=== PATIENT | female | born 1935 | race Caucasian/White ===

== ENCOUNTER 2018-01-21 21:57 | Inpatient (IN) | payer MEDICARE, MEDICAID ==
[~2018-01-21] VITALS: Ht 165.1 cm; Wt 98.6 kg
[2018-01-21] MEDS ORDERED: ONDANSETRON 4 MG/2 ML (SDV) Z0FRAN IVP PRN (22:15)
[2018-01-21] MEDS ORDERED: VITAMIN K 1 MG/ML ORAL SOLN 1 ML SYRINGE PO ONE (22:15)
[2018-01-21] MEDS ORDERED: ALPRAZolam 0.25 MG (XANAX) TAB PO PRN (22:15)
[2018-01-21] MEDS ORDERED: CALCIUM CARBONATE 500 MG (TUMS) TAB.CHEW PO PRN (22:15)
[2018-01-21] MEDS ORDERED: ACETAMINOPHEN 500 MG TAB (TYLENOL) PO PRN (22:15)
[2018-01-21 23:40] VITALS: BP 105/74
[2018-01-21 23:45] VITALS: BP 100/39
[2018-01-21] MEDS: NS IV 1000 ML 1,000 ML IV SCH (23:50)
[2018-01-22] VITALS (17 sets, daily range): BP systolic 82–110; BP diastolic 49–84
[2018-01-22] MEDS ORDERED: RT-ALBUTEROL SULF 2.5 MG/3 ML PRE-MIX VIAL INH PRN (01:00)
[2018-01-22] MEDS ORDERED: DIVA250T12 PO (02:53)
[2018-01-22] MEDS ORDERED: TRIM100T PO (02:53)
[2018-01-22] MEDS ORDERED: POTA10CA43 PO (02:53)
[2018-01-22] MEDS ORDERED: MV-M1TAB2 PO (02:53)
[2018-01-22] MEDS ORDERED: PARO10TA81 PO (02:53)
[2018-01-22] MEDS ORDERED: ASCO500C17 PO (02:53)
[2018-01-22] MEDS ORDERED: PRAV40TA2 PO (02:53)
[2018-01-22] MEDS ORDERED: DILT180C PO (02:53)
[2018-01-22] MEDS ORDERED: CRAN300T PO (02:53)
[2018-01-22] MEDS ORDERED: ACET-2267 PO (02:56)
[2018-01-22] MEDS ORDERED: MEMA10TA2 PO (02:56)
[2018-01-22] MEDS ORDERED: FERR325T18 PO (02:56)
[2018-01-22 04:31] LABS: BASOPHILS % (AUTO) 0 % (0-10); EOSINOPHILS % (AUTO) 0 % (0-10); HEMATOCRIT 38 % (35-52); HEMOGLOBIN 12.3 G/DL (11.5-16.0); LYMPHOCYTES # (AUTO) 0.8 X 10^3 (1.0-4.0); LYMPHOCYTES % (AUTO) 5 % (12-44); MEAN CORPUSCULAR HEMOGLOBIN 31 PG (25-34); MEAN CORPUSCULAR HGB CONC 33 G/DL (32-36); MEAN CORPUSCULAR VOLUME 94 FL (80-99); MEAN PLATELET VOLUME 11.5 FL (7.4-10.4); MONOCYTES # (AUTO) 0.7 X 10^3 (0.0-1.0); MONOCYTES % (AUTO) 4 % (0-12); NEUTROPHILS % (AUTO) 91 % (42-75); PLATELET COUNT 218 10^3/uL (130-400); RED BLOOD COUNT 3.99 10^6/uL (4.35-5.85); RED CELL DISTRIBUTION WIDTH 14.4 % (10.0-14.5); WHITE BLOOD COUNT 16.6 10^3/uL (4.3-11.0)
[2018-01-22 04:41] LABS: INR 3.5 (0.8-1.4)
[2018-01-22] MEDS ORDERED: NS IV 1000 ML 1,000 ML IV SCH ×2 (07:00→14:30)
--- NOTE | 2018-01-22 07:15 | Pulmonary Consultation ---
History of Present Illness History of Present Illness Date of Consultation 01/22/18 07:11 Time Seen by Provider: 09:02 Date of Admission History of Present Illness 82yo with hx of dementia, PE, anemia presented to ED [facility]p fall at [facility]. Pt is confused. Unable to obtain ROS. CT in ED is negative however found to have a fractured Distal femur. Ortho is consulted. I am consulted for ICU management. Allergies and Home Medications Allergies Coded Allergies: No Allergy Information Available (Unverified , 01/21/18) Home Medications Acetaminophen 500 Mg Tablet, 500 MG PO TID, (Reported) Acetaminophen 325 Mg Tablet, 650 MG PO Q8H PRN for PAIN-MILD, (Reported) Ascorbic Acid 500 Mg Tablet, 500 MG PO DAILY, (Reported) Cranberry Extract 300 Mg Tablet, 300 MG PO BID, (Reported) Diltiazem HCl 180 Mg Cap.er.24h, 180 MG PO DAILY, (Reported) Divalproex Sodium 500 Mg Tab.er.24h, 500 MG PO DAILY, (Reported) Ferrous Sulfate 325 Mg Tablet, 325 MG PO BID, (Reported) Guaifenesin 600 Mg Tab.er.12h, 600 MG PO Q12H PRN for CONGESTION, (Reported) Hydrocodone Bit/Acetaminophen 1 Tab Tab, 1 TAB PO Q4H PRN for MOD Prescribed by: FERMIN YING on 01/27/18 1057 Magnesium Hydroxide 400 Mg/5 Ml Oral.susp, 30 ML PO DAILY PRN for CONSTIPATION- 7TH LINE, (Reported) Memantine HCl 10 Mg Tablet, 10 MG PO BID, (Reported) Multivits,Th W-Fe,Other Min 1 Each Tablet, 1 TAB PO DAILY, (Reported) Nystatin 60 Gm Powder, TP Q12H PRN for RASH, (Reported) Paroxetine HCl 10 Mg Tablet, 10 MG PO DAILY, (Reported) Potassium Chloride 10 Meq Tab.er.prt, 10 MEQ PO DAILY, (Reported) Pravastatin Sodium 40 Mg Tablet, 40 MG PO HS, (Reported) Simethicone 125 Mg Tab.chew, 125 MG PO QID PRN for GAS, (Reported) Tramadol HCl 50 Mg Tablet, 50 MG PO Q4H PRN for PAIN-MODERATE, (Reported) Trimethoprim 100 Mg Tablet, 100 MG PO HS, (Reported) Warfarin Sodium 3 Mg Tablet, 3 MG PO 1700, (Reported) Past Yddoyhk-Gxmcdv-Likgns Hx Patient Social History Alcohol Use: Denies Use Recreational Drug Use: No Smoking Status: Never a Smoker Recent Foreign Travel: No Contact w/Someone Who Travel: No Recent Infectious Disease Expo: No Recent Hopitalizations: No Seasonal Allergies Seasonal Allergies: No Past Medical History Surgeries: Yes Respiratory: No Currently Using CPAP: No Cardiac: Yes (VC filter) Neurological: Yes Genitourinary: No Gastrointestinal: Yes Gastroesophageal Reflux, Diverticulosis, Hiatal Hernia Musculoskeletal: No Endocrine: No HEENT: No Cancer: No Psychosocial: Yes Depression Integumentary: No Blood Disorders: Yes (anemia) Adverse Reaction/Blood Tranf: No Review of Systems Time Seen by Provider: 09:04 Sepsis Event Evaluation Height, Weight, BMI Height: 5'5.00" Weight: 194lbs. 3.0oz. 88.983974kp; 32.0 BMI Method: Exam Exam Vital Signs Date Time Temp Pulse Resp B/P (MAP) Pulse Ox O2 Delivery O2 Flow Rate FiO2 01/22/18 06:00 110 15 98 Room Air 01/22/18 05:00 108 18 96/76 (83) 97 Room Air 01/22/18 04:00 98.1 107 18 96/76 (83) 97 Room Air 01/22/18 03:00 101 15 99/54 (69) 98 Room Air 01/22/18 02:00 97 15 101/49 (66) 97 Room Air 01/22/18 01:30 96 15 107/60 (76) 97 Room Air 01/22/18 01:15 94 15 107/55 (72) 100 Room Air 01/22/18 01:02 97 Nasal Cannula 2.00 01/22/18 01:00 96 14 101/67 (78) 100 Room Air 01/22/18 01:00 96 01/22/18 00:45 95 14 108/64 (79) 95 Room Air 01/22/18 00:30 97 15 89/70 (76) 84 Room Air 01/22/18 00:15 96 14 82/65 (71) 95 Room Air 01/22/18 00:03 98 95 01/22/18 00:00 101 15 104/76 (85) 99 Nasal Cannula 2.00 01/21/18 23:45 101 14 100/39 (59) 98 Nasal Cannula 2.00 01/21/18 23:40 98.2 99 14 105/74 (84) 97 Nasal Cannula 2.00 01/21/18 23:37 100 01/21/18 23:25 Nasal Cannula 2.00 I & O 01/22/18 07:00 Intake Total 0 ml Output Total 175 ml Balance -175 ml Height & Weight Height: 5'5.00" Weight: 194lbs. 3.0oz. 88.059980pp; 32.0 BMI Method: General Appearance: Anxious, Mild Distress HEENT: PERRL/EOMI, Normal ENT Inspection Neck: Full Range of Motion, Non Tender, Supple Respiratory: No Accessory Muscle Use, No Respiratory Distress, Decreased Breath Sounds Cardiovascular: No Edema, No Murmur, Tachycardia Capillary Refill: Greater Than 3 Seconds Gastrointestinal: normal bowel sounds, non tender, soft Extremity: Normal Capillary Refill, Normal Inspection Neurologic/Psychiatric: Alert Skin: Normal Color Lymphatic: No Adenopathy Results Lab Laboratory Tests 01/22/18 03:41 Assessment/Plan Assessment/Plan L Femur fracture -Ortho consulted Hypotension -IVF- increase to 125 -Monitor UO -Will give a 1 liter bolus ANDRE CENTENO DO Jan 22, 2018 07:15
--- NOTE | 2018-01-22 07:50 | History & Physical-Hospitalist ---
History of Present Illness HPI/Chief Complaint Pt is an 82yoCF with a reported PMH of dementia, PE, divierticulitis, HTn, HLD, and anemia who presented to outside ER after a fall at her group home. She is unable to provide me any history regarding this fall and when asked why she is here she states "because and ambulance brought me." All history is obtained from the records. She apparently fell forward and hit the floor while trying to pull up her depends after sitting on the commode. Evaluation in ER revealed a negative CT head and c-spine from acute changes, but hip x-ray revealed a comminuted distal femur fracture. She was transferred here for orthopedic evaluation. Source: patient Date Seen 01/22/18 Time Seen by Provider: 07:44 Attending Physician Cheyenne Vilchis John M MD Referring Physician Date of Admission Jan 21, 2018 at 11:25 pm Home Medications & Allergies Home Medications Reviewed patient Home Medication Reconciliation performed by pharmacy medication reconciliations bacteriology technician and/or nursing. Patients Allergies have been reviewed. Allergies Allergies Coded Allergies No Allergy Information Available (Unverified01/21/18) Past Rgkblbd-Kkjcaf-Ghvdru Hx Past Med/Social Hx: Reviewed Nursing Past Med/Soc Hx Patient Social History Employed/Student: retired Alcohol Use: Denies Use Recreational Drug Use: No Smoking Status: Never a Smoker Physical Abuse Screen: No Sexual Abuse: No Recent Foreign Travel: No Contact w/other who traveled: No Recent Hopitalizations: No Recent Infectious Disease Expo: No Seasonal Allergies Seasonal Allergies: No Past Medical History Surgeries: Hysterectomy IVF filter Currently Using CPAP: No Cardiac: Hypertension Neurological: Dementia Gastrointestinal: Gastroesophageal Reflux, Diverticulosis, Hiatal Hernia Psychosocial: Depression History of Blood Disorders: Yes (anemia) Adverse Reaction to Blood Gomez: No Family History Reviewed Nursing Family Hx Review of Systems ROS-Unable to Obtain: limited due to dementia Constitutional: see HPI Physical Exam Physical Exam Vital Signs Vital Signs - First Documented 01/21/18 01/21/18 01/21/18 23:25 23:37 23:40 Temp 98.2 Pulse 100 Resp 14 B/P (MAP) 105/74 (84) Pulse Ox 97 O2 Delivery Nasal Cannula O2 Flow Rate 2.00 Capillary Refill : Less Than 3 Seconds Height, Weight, BMI Height: 5'5.00" Weight: 194lbs. 3.0oz. 88.255241xa; 32.0 BMI Method: General Appearance: No Apparent Distress, Chronically ill Respiratory: Lungs Clear, No Respiratory Distress Cardiovascular: No Murmur, Tachycardia Gastrointestinal: Normal Bowel Sounds, Non Tender, Soft Extremity: No Calf Tenderness, No Pedal Edema Neurologic/Psychiatric: Alert, Disoriented Skin: Normal Color, Warm/Dry Results Results/Procedures Labs Laboratory Tests 01/22/18 03:41 01/22/18 08:15 Patient resulted labs reviewed. Imaging: Reviewed Imaging Report Assessment/Plan Admission Diagnosis left hip fracture Admission Status: Inpatient Order (span 2 midnights) Reason for Inpatient Admission: likely needs more than two days to medically optimize for surgery and recovery Diagnosis/Problems Diagnosis/Problems (1) Femur fracture, left Status: Acute Assessment & Plan: Ortho consulted, appreciate recs INR elevated- Vitamin K given this AM Per NSQIP moderate risk at this time at 11.5% risk for serious event Further evaluation needed of hypotension Qualifiers: Encounter type: initial encounter Femur location: shaft Fracture type: closed Fracture morphology: comminuted Fracture alignment: displaced Qualified Codes: S72.352A - Displaced comminuted fracture of shaft of left femur, initial encounter for closed fracture (2) Hypotension Status: Acute Assessment & Plan: Unsure of etiology Will work up for potential sepsis though no source at this time Bolus fluids started by Dr Joseph this AM Lactic acid pending Qualifiers: Hypotension type: unspecified hypotension type Qualified Codes: I95.9 - Hypotension, unspecified (3) Dementia Assessment & Plan: Oriented to person and minor details of situation Qualifiers: Dementia type: unspecified type (4) Leukocytosis Status: Acute Assessment & Plan: Work up for sepsis as above though no source of infection at this time Clinical Quality Measures DVT/VTE Risk/Contraindication: Risk Factor Score Per Nursin RFS Level Per Nursing on Admit: 4+=Very High WAQAR OROPEZA MD Jan 22, 2018 7:50 am
--- NOTE | 2018-01-22 08:25 | Diagnostic Imaging Report ---
INDICATION: Pneumonia. COMPARISON: None FINDINGS: Single frontal radiographic view of the chest was obtained and demonstrates mild enlargement of the cardiac silhouette. This, however, may be accentuated by portable technique and low inspiratory volumes. Pulmonary vasculature is within normal limits. Again, lungs show low inspiratory volumes. There is minimal atelectasis in the left base. Otherwise, lungs are clear. There is no large effusion or pneumothorax. Bony structures show no gross acute abnormalities. IMPRESSION: 1. Low lung volumes with left basilar atelectasis. 2. Mild enlargement of the cardiac silhouette, which again is likely accentuated by portable technique and shallow inspiration. Dictated by: Dictated on workstation # [id number]
[2018-01-22] MEDS: DOCUSATE SODIUM 100 MG (COLACE) CAP PO SCH ×2 (08:27→21:39)
[2018-01-22] MEDS: NS IV 1000 ML 1,000 ML IV SCH ×3 (08:27→21:36)
[2018-01-22] MEDS ORDERED: POTA10TA36 PO (08:33)
[2018-01-22] MEDS ORDERED: MULT-640 PO (08:33)
[2018-01-22] MEDS ORDERED: DIVA500T15 PO (08:33)
[2018-01-22] MEDS ORDERED: ASCO500T7 PO (08:33)
[2018-01-22 08:34] LABS: BASOPHILS % (AUTO) 0 % (0-10); EOSINOPHILS % (AUTO) 0 % (0-10); HEMATOCRIT 32 % (35-52); HEMOGLOBIN 10.5 G/DL (11.5-16.0); LYMPHOCYTES # (AUTO) 1.2 X 10^3 (1.0-4.0); LYMPHOCYTES % (AUTO) 10 % (12-44); MEAN CORPUSCULAR HEMOGLOBIN 31 PG (25-34); MEAN CORPUSCULAR HGB CONC 33 G/DL (32-36); MEAN CORPUSCULAR VOLUME 94 FL (80-99); MEAN PLATELET VOLUME 10.9 FL (7.4-10.4); MONOCYTES # (AUTO) 0.7 X 10^3 (0.0-1.0); MONOCYTES % (AUTO) 6 % (0-12); NEUTROPHILS # (AUTO) 10.6 X 10^3 (1.8-7.8); NEUTROPHILS % (AUTO) 85 % (42-75); PLATELET COUNT 210 10^3/uL (130-400); RED CELL DISTRIBUTION WIDTH 14.5 % (10.0-14.5); WHITE BLOOD COUNT 12.6 10^3/uL (4.3-11.0)
[2018-01-22] MEDS: HYDROcodone/APAP 5 MG/325 MG (LORTAB) TAB PO PRN ×3 (08:39→21:39)
[2018-01-22 08:50] LABS: INR 3.5 (0.8-1.4); PROTHROMBIN TIME PATIENT 35.7 SEC (12.2-14.7)
[2018-01-22 08:56] LABS: ALBUMIN 3.3 GM/DL (3.2-4.5); BILIRUBIN,TOTAL 0.3 MG/DL (0.1-1.0); CALCIUM 8.6 MG/DL (8.5-10.1); CREATININE SERUM 0.9 MG/DL (0.60-1.30); POTASSIUM 5.1 MMOL/L (3.6-5.0); TOTAL PROTEIN 5.1 GM/DL (6.4-8.2)
[2018-01-22] MEDS ORDERED: WARF3TAB56 PO (09:16)
[2018-01-22] MEDS ORDERED: NYST60PO TP (09:20)
[2018-01-22] MEDS ORDERED: SIME125T50 PO (09:20)
[2018-01-22] MEDS ORDERED: MAGN400O7 PO (09:20)
[2018-01-22] MEDS ORDERED: ACET325T38 PO (09:20)
[2018-01-22] MEDS ORDERED: GUAI600T43 PO (09:20)
[2018-01-22] MEDS ORDERED: TRAM50TA2 PO (09:20)
--- NOTE | 2018-01-22 09:23 | Consultation-Cardiology ---
HPI-Cardiology Cardiology Consultation: Date of Consultation 01/22/18 Date of Admission Attending Physician Cheyenne Vilchis DO Admitting Physician Lalo Ruiz MD Consulting Physician Hedy MARCH MD HPI: Time Seen by Provider: 12:00 Chief Complaint: Femur fracture. This is an 82-year-old lady with history of dementia, PE, diverticulitis, hypertension and hyperlipidemia. She presented to an outside hospital after falling [facility] her [facility]. She is a poor historian. Negative head CT and C-spine. Hip x-ray revealed distal femur fracture. Orthopedic surgery pending. Review of Systems-Cardiology Review of Systems Constitutional: As described under HPI; No As described under HPI, No no symptoms reported, No chills, No fever, No lightheadedness Eyes: No As described under HPI, No no symptoms reported, No blindness, No blurred vision, No contact lenses, No drainage, No decreased acuity, No foreign body sensation, No pain, No vision change Ears/Nose/Throat: No As described under HPI, No no symptoms reported, No chronic hearing loss, No ear discharge, No ear pain, No nasal drainage, No ulcerations Respiratory: No no symptoms reported; As described under HPI; No As described under HPI, No cough, No orthopnea, No shortness of breath, No SOB with excertion Cardiovascular: No no symptoms reported; As described under HPI; No As described under HPI, No chest pain, No edema, No irregular heart rate, No lightheadedness, No palpitations Gastrointestinal: No no symptoms reported, No As described under HPI, No abdomen distended, No abdominal pain, No blood streaked bowels, No constipation , No diarrhea, No nausea, No vomiting, No stool coloration changes Genitourinary: No As described under HPI, No burning, No dysuria, No discharge , No frequency, No flank pain, No hematuria, No urgency : Yes : No Skin: No rash, No skin related problems, No ulcerations Psychiatric/Neurological: As described under HPI; No anxiety, No depression, No seizure, No focal weakness, No syncope Hematologic: No bleeding abnormalities KDH-Fvnwdd-Vswxip Hx Patient Social History Employed/Student: retired Alcohol Use: Denies Use Recreational Drug Use: No Smoking Status: Never a Smoker Recent Foreign Travel: No Recent Infectious Disease Expo: No Physical Abuse Screen: No Sexual Abuse: No Past Medical History PMH As described under Assessment. Allergies and Home Medications Allergies Coded Allergies: No Allergy Information Available (Unverified , 01/21/18) Home Medications Acetaminophen 500 Mg Tablet, 500 MG PO TID, (Reported) Acetaminophen 325 Mg Tablet, 650 MG PO Q8H PRN for PAIN-MILD, (Reported) Ascorbic Acid 500 Mg Tablet, 500 MG PO DAILY, (Reported) Cranberry Extract 300 Mg Tablet, 300 MG PO BID, (Reported) Diltiazem HCl 180 Mg Cap.er.24h, 180 MG PO DAILY, (Reported) Divalproex Sodium 500 Mg Tab.er.24h, 500 MG PO DAILY, (Reported) Ferrous Sulfate 325 Mg Tablet, 325 MG PO BID, (Reported) Guaifenesin 600 Mg Tab.er.12h, 600 MG PO Q12H PRN for CONGESTION, (Reported) Magnesium Hydroxide 400 Mg/5 Ml Oral.susp, 30 ML PO DAILY PRN for CONSTIPATION- 7TH LINE, (Reported) Memantine HCl 10 Mg Tablet, 10 MG PO BID, (Reported) Multivits,Th W-Fe,Other Min 1 Each Tablet, 1 TAB PO DAILY, (Reported) Nystatin 60 Gm Powder, TP Q12H PRN for RASH, (Reported) Paroxetine HCl 10 Mg Tablet, 10 MG PO DAILY, (Reported) Potassium Chloride 10 Meq Tab.er.prt, 10 MEQ PO DAILY, (Reported) Pravastatin Sodium 40 Mg Tablet, 40 MG PO HS, (Reported) Simethicone 125 Mg Tab.chew, 125 MG PO QID PRN for GAS, (Reported) Tramadol HCl 50 Mg Tablet, 50 MG PO Q4H PRN for PAIN-MODERATE, (Reported) Trimethoprim 100 Mg Tablet, 100 MG PO HS, (Reported) Warfarin Sodium 3 Mg Tablet, 3 MG PO 1700, (Reported) Patient Home Medication List Home Medication List Reviewed: Yes Physical Exam-Cardiology Physical Exam Vital Signs/I&O 01/23/18 01/23/18 01/23/18 01/23/18 00:00 00:30 01:05 04:00 Temp 98.1 99.2 Pulse 99 98 96 Resp 13 14 B/P (MAP) 98/53 (68) 121/60 (80) Pulse Ox 93 100 O2 Delivery Nasal Cannula Nasal Cannula O2 Flow Rate 2.00 2.00 01/23/18 01/23/18 01/23/1811/18 07:00 07:00 08:00 10:27 Temp 99.4 Pulse 99 99 99 105 Resp 16 15 17 B/P (MAP) 113/60 (77) 103/75 Pulse Ox 100 90 98 O2 Delivery Nasal Cannula Nasal Cannula O2 Flow Rate 2.00 2.00 01/23/18 00:00 Intake Total 4200 ml Output Total 395 ml Balance 3805 ml Capillary Refill : Less Than 3 Seconds Constitutional: appears stated age; No apparent distress; well-developed, well- nourished HEENT: PERRL; No discharge; hearing is well preserved, oral hygience is good; No ulceration, No xanthelasmas are seen Neck: No carotid bruit; carotid pulses are 2 + bilaterally Respiratory: No accessory muscle use, No respiratory distress, No chest tender , No chest expansion is symmetric; chest is bilaterally symmetric; No lungs clear to percussion; lungs clear to auscultation; No crackles, No rhonchi, No rales, No stridor, No wheezing, No pleural rub, No other Cardiovascular: regular rate-rhythm; No irregularly irregular, No extra beats, No parasternal heave is noted, No JVD, No edema, No bradycardia, No tachycardia , No point of maximal impulse, No cardiac thrills are palpable; S1 and S2; No gallop/S3, No gallop/S4, No diastolic murmur, No systolic murmur, No friction rub, No click, No other Gastrointestinal: No tender, No soft, No round, No distended, No pulsatile mass , No organomegaly, No guarding, No rebound, No tenderness, No hernia, No mass, No audible bowel sounds, No abnormal bowel sounds, No abdominal bruits, No spleenomegaly, No other Rectal: deferred Extremities: No normal range of motion, No non-tender, No normal inspection, No pedal edema, No calf tenderness, No normal capillary refill, No pelvis stable , No calf tenderness, No inflammation, No pedal edema, No slow capillary refill , No swelling, No other, No abrasion, No clubbing, No cyanosis, No ecchymosis, No laceration, No no lower extremity edema bilateral, No significant edema; tenderness; No wound Neurologic/Psychiatric: alert, oriented x 3, power is 5/5 both on sides Skin: No normal color, No warm/dry, No cyanosis, No cool, No diaphoresis, No damp, No ecchymosis, No jaundice, No mottled, No pallor, No rash, No tattoos/ piercings, No ulcerations, No rash on exposed areas, No ulcerations on exposed areas, No other Data Review Labs Laboratory Tests 01/23/18 07:08: White Blood Count 9.8, Red Blood Count 2.51L, Hemoglobin 7.7#L, Hematocrit 24L, Mean Corpuscular Volume 97, Mean Corpuscular Hemoglobin 31, Mean Corpuscular Hemoglobin Concent 32, Red Cell Distribution Width 14.8H, Platelet Count 84L, Mean Platelet Volume 11.4H, Neutrophils (%) (Auto) 71, Lymphocytes (%) (Auto) 16 , Monocytes (%) (Auto) 12, Eosinophils (%) (Auto) 1, Basophils (%) (Auto) 0, Neutrophils # (Auto) 6.9, Lymphocytes # (Auto) 1.5, Monocytes # (Auto) 1.2H, Eosinophils # (Auto) 0.1, Basophils # (Auto) 0.0, Sodium Level 143, Potassium Level 4.0, Chloride Level 115H, Carbon Dioxide Level 19L, Anion Gap 9, Blood Urea Nitrogen 21H, Creatinine 0.67, Estimat Glomerular Filtration Rate > 60, BUN /Creatinine Ratio 31, Glucose Level 99, Calcium Level 7.9L 01/23/18 07:50: Prothrombin Time 19.1H, INR Comment 1.6H ECG Impression ECG Initial ECG Rhythm: S.Tach Initial ECG Impression: Nonspecific Changes A/P-Cardiology Assessment/Admission Diagnosis Preoperative cardiovascular risk assessment, previous history of atrial fibrillation, PE, Hypertension, Hyperlipidemia, Plan Patient will be considered at moderate risk for major adverse perioperative cardiac events undergoing an intermediate risk noncardiac surgery. Atrial fibrillation: Patient's EKG shows sinus tachycardia. Patient is already on warfarin and rate controlling agent. Hypertension: Continue outpatient medical therapy. Hyperlipidemia: Continue statin therapy. Thank you for your consultation. Please call me if you have any questions. Kishan March MD, FACP, FACC, FSCAI, FHRS, CCDS Interventional Cardiology Cardiac Electrophysiology Vascular Medicine and Endovascular Interventions Clinical Quality Measures DVT/VTE Risk/Contraindication: Risk Factor Score Per Nursin RFS Level Per Nursing on Admit: 4+=Very High Hedy MARCH MD Jan 22, 2018 9:23 am
[2018-01-22] MEDS ORDERED: NON-FORMULARY MEDICATION 1 EA EA (Pravastatin Sodium 40 MG) PO SCH (21:00)
[2018-01-22] MEDS ORDERED: NON-FORMULARY MEDICATION 1 EA EA (Trimethoprim 100 MG) PO SCH (21:00)
[2018-01-22] MEDS ORDERED: MEMANTINE HCL 10 MG PO SCH (21:00)
[2018-01-22] MEDS: MEMANTINE 10 MG (NAMENDA) TABLET PO SCH (21:39)
[2018-01-22] MEDS: SIMvastatin 20 MG (ZOCOR) TAB PO SCH (21:39)
[2018-01-23] VITALS (19 sets, daily range): BP systolic 78–161; BP diastolic 43–88
[2018-01-23] MEDS: HYDROcodone/APAP 5 MG/325 MG (LORTAB) TAB PO PRN (05:38)
[2018-01-23] MEDS: NS IV 1000 ML 1,000 ML IV SCH ×4 (05:49→22:26)
--- NOTE | 2018-01-23 06:53 | Progress Note-Hospitalist ---
Subjective HPI/CC On Admission Date Seen by Provider: Jan 23, 2018 Time Seen by Provider: 06:50 Pt is an 82yoCF with a reported PMH of dementia, PE, divierticulitis, HTn, HLD, and anemia who presented to outside ER after a fall at her alf. She is unable to provide me any history regarding this fall and when asked why she is here she states "because and ambulance brought me." All history is obtained from the records. She apparently fell forward and hit the floor while trying to pull up her depends after sitting on the commode. Evaluation in ER revealed a negative CT head and c-spine from acute changes, but hip x-ray revealed a comminuted distal femur fracture. She was transferred here for orthopedic evaluation. Subjective/Events-last exam Pt reports feeling better. Denies any pain. Requests to go back to sleep so she can be ready for anabaptism. Focused Exam Lactate Level 01/22/18 08:15: Lactic Acid Level 2.56*H 01/22/18 10:43: Lactic Acid Level 1.76 Objective Exam Vital Signs Vital Signs Date Time Temp Pulse Resp B/P (MAP) Pulse Ox O2 Delivery O2 Flow Rate FiO2 01/23/18 04:00 99.2 96 14 121/60 (80) 100 Nasal Cannula 2.00 Capillary Refill : Less Than 3 Seconds General Appearance: No Apparent Distress, Chronically ill Respiratory: Lungs Clear, No Respiratory Distress Cardiovascular: Regular Rate, Rhythm, No Murmur Gastrointestinal: Normal Bowel Sounds, Non Tender, Soft Extremity: No Calf Tenderness, No Pedal Edema Neurologic/Psychiatric: Alert, Disoriented Results/Procedures Lab Laboratory Tests 01/22/18 08:15 Patient resulted labs reviewed. Imaging: Reviewed Imaging Report Assessment/Plan Assessment and Plan Assess & Plan/Chief Complaint Left hip fracture Diagnosis/Problems Diagnosis/Problems (1) Femur fracture, left Status: Acute Assessment & Plan: Ortho consulted, appreciate recs INR elevated- Vitamin K given yesterday Today's level pending Per NSQIP moderate risk at this time at 11.5% risk for serious event Qualifiers: Encounter type: initial encounter Femur location: shaft Fracture type: closed Fracture morphology: comminuted Fracture alignment: displaced Qualified Codes: S72.352A - Displaced comminuted fracture of shaft of left femur, initial encounter for closed fracture (2) Hypotension Status: Acute Assessment & Plan: Resolved Continue to monitor and hold home antihypertensives Qualifiers: Hypotension type: unspecified hypotension type Qualified Codes: I95.9 - Hypotension, unspecified (3) Dementia Assessment & Plan: Oriented to person and minor details of situation Qualifiers: Dementia type: unspecified type (4) Leukocytosis Status: Acute Assessment & Plan: Improving, today's labs pending Clinical Quality Measures DVT/VTE Risk/Contraindication: Risk Factor Score Per Nursin RFS Level Per Nursing on Admit: 4+=Very High WAQAR OROPEZA MD Jan 23, 2018 06:52
[2018-01-23] MEDS ORDERED: ROCURONIUM 10 MG/ML 5 ML SYRINGE IV ONE (06:54)
[2018-01-23] MEDS ORDERED: SEVOFLURANE (ULTANE) 15 ML INHAL SOLN ONE ×10 (06:54→12:51)
[2018-01-23] MEDS ORDERED: LIDOCAINE PF 2% 5 ML (XYLOCAINE) VIAL ONE (06:54)
[2018-01-23] MEDS ORDERED: ONDANSETRON 4 MG/2 ML (SDV) Z0FRAN ONE (06:54)
[2018-01-23] MEDS ORDERED: LACTATED RINGERS 1,000 ML IV ONE ×3 (06:54→12:44)
[2018-01-23] MEDS ORDERED: fentaNYL INJECTION 100 MCG/2 ML AMP ONE (06:54)
[2018-01-23] MEDS ORDERED: MIDAZOLAM 2 MG/2 ML (VERSED) VIAL ONE (06:54)
[2018-01-23] MEDS ORDERED: proPOfol 200 MG/20 ML (DIPRIVAN) VIAL IV ONE (06:54)
[2018-01-23] MEDS ORDERED: SUCCINYLCHOLINE INJ 100 MG/5 ML SYR ONE ×2 (06:54→11:48)
[2018-01-23 07:27] LABS: BASOPHILS % (AUTO) 0 % (0-10); EOSINOPHILS # (AUTO) 0.1 10^3/uL (0.0-0.3); EOSINOPHILS % (AUTO) 1 % (0-10); HEMATOCRIT 24 % (35-52); HEMOGLOBIN 7.7 G/DL (11.5-16.0); LYMPHOCYTES # (AUTO) 1.5 X 10^3 (1.0-4.0); LYMPHOCYTES % (AUTO) 16 % (12-44); MEAN CORPUSCULAR HEMOGLOBIN 31 PG (25-34); MEAN CORPUSCULAR HGB CONC 32 G/DL (32-36); MEAN CORPUSCULAR VOLUME 97 FL (80-99); MEAN PLATELET VOLUME 11.4 FL (7.4-10.4); MONOCYTES # (AUTO) 1.2 X 10^3 (0.0-1.0); MONOCYTES % (AUTO) 12 % (0-12); NEUTROPHILS # (AUTO) 6.9 X 10^3 (1.8-7.8); NEUTROPHILS % (AUTO) 71 % (42-75); PLATELET COUNT 84 10^3/uL (130-400); RED BLOOD COUNT 2.51 10^6/uL (4.35-5.85); RED CELL DISTRIBUTION WIDTH 14.8 % (10.0-14.5); WHITE BLOOD COUNT 9.8 10^3/uL (4.3-11.0)
[2018-01-23 07:45] LABS: BUN/CREATININE RATIO 31; CALCIUM 7.9 MG/DL (8.5-10.1); CARBON DIOXIDE 19 MMOL/L (21-32); CHLORIDE 115 MMOL/L (98-107); CREATININE SERUM 0.67 MG/DL (0.60-1.30); GFR ESTIMATED > 60; GLUCOSE 99 MG/DL (70-105); SODIUM 143 MMOL/L (135-145)
--- NOTE | 2018-01-23 08:15 | Pulmonary Progress Note ---
Subjective Time Seen by Provider: 08:24 Subjective/Events-last exam plan is for repair of hip this AM Sepsis Event Evaluation Height, Weight, BMI Height: 5'5.00" Weight: 196lbs. 8.0oz. 89.013113pc; 32.0 BMI Method: Focused Exam Lactate Level 01/22/18 08:15: Lactic Acid Level 2.56*H 01/22/18 10:43: Lactic Acid Level 1.76 Exam Exam Vital Signs Date Time Temp Pulse Resp B/P (MAP) Pulse Ox O2 Delivery O2 Flow Rate FiO2 01/23/18 07:00 99 01/23/18 04:00 99.2 96 14 121/60 (80) 100 Nasal Cannula 2.00 01/23/18 01:05 98 01/23/18 00:30 98.1 01/23/18 00:00 99 13 98/53 (68) 93 Nasal Cannula 2.00 01/22/18 21:00 98 Nasal Cannula 2.00 01/22/18 20:00 99.7 104 20 110/65 (80) 98 Nasal Cannula 2.00 01/22/18 19:57 98 Nasal Cannula 2.00 01/22/18 19:02 99.5 01/22/18 19:01 112 01/22/18 18:59 100.4 01/22/18 16:00 105 17 110/70 (83) 100 Room Air 01/22/18 15:33 99.3 01/22/18 13:00 110 01/22/18 12:00 112 18 101/84 (90) 97 Room Air 01/22/18 12:00 98.3 01/22/18 08:45 110 21 102/69 (80) 95 Room Air 01/22/18 08:15 Nasal Cannula 2.00 I & O 01/23/18 07:00 Intake Total 5250 ml Output Total 700 ml Balance 4550 ml Height & Weight Height: 5'5.00" Weight: 196lbs. 8.0oz. 89.615395mg; 32.0 BMI Method: General Appearance: No Apparent Distress, Chronically ill Respiratory: Lungs Clear, No Respiratory Distress Cardiovascular: Regular Rate, Rhythm, No Murmur Gastrointestinal: normal bowel sounds, non tender, soft, no organomegaly, no pulsatile mass Extremity: No Calf Tenderness, No Pedal Edema Neurologic/Psychiatric: Alert, Disoriented Skin: Normal Color, Warm/Dry Results Lab Laboratory Tests 01/22/18 03:41 01/22/18 08:15 01/23/18 07:08 Assessment/Plan Assessment/Plan L Femur fracture -Ortho consulted plan is for surgery today -pain control Anemia -Check occult stool -transfuse 2 units of PRBC now -check H&H Q12 for now Hypotension - resolved -IVF- increase to 125 -Monitor UO -Will give a 1 liter bolus ANDRE CENTENO DO Jan 23, 2018 08:15
[2018-01-23 08:18] LABS: INR 1.6 (0.8-1.4); PROTHROMBIN TIME PATIENT 19.1 SEC (12.2-14.7)
[2018-01-23] MEDS ORDERED: PAROXETINE HCL 10 MG PO SCH (09:00)
--- NOTE | 2018-01-23 09:51 | Consultation ---
History of Present Illness History of Present Illness Patient Consulted On(bladimir/time) 01/23/18 09:48 Date Seen by Provider: Jan 23, 2018 Time Seen by Provider: 09:48 Reason for Visit: Left femur fracture History of Present Illness 82 y/o female [place] resident with h/o dementia presented to [facility] ED with CC of acute onset of LLE pain secondary to a mechanical GLF. Upon presentation plain radiographs of the Left femur demonstrated a displaced, comminuted fracture of the Left distal femur. The patient was transferred to [facility] for definitive management of her injury. The patient has no additional musculoskeletal complaints, did not sustain additional injuries. Allergies and Home Medications Allergies Coded Allergies: No Allergy Information Available (Unverified , 01/21/18) Home Medications Acetaminophen 500 Mg Tablet, 500 MG PO TID, (Reported) Acetaminophen 325 Mg Tablet, 650 MG PO Q8H PRN for PAIN-MILD, (Reported) Ascorbic Acid 500 Mg Tablet, 500 MG PO DAILY, (Reported) Cranberry Extract 300 Mg Tablet, 300 MG PO BID, (Reported) Diltiazem HCl 180 Mg Cap.er.24h, 180 MG PO DAILY, (Reported) Divalproex Sodium 500 Mg Tab.er.24h, 500 MG PO DAILY, (Reported) Ferrous Sulfate 325 Mg Tablet, 325 MG PO BID, (Reported) Guaifenesin 600 Mg Tab.er.12h, 600 MG PO Q12H PRN for CONGESTION, (Reported) Magnesium Hydroxide 400 Mg/5 Ml Oral.susp, 30 ML PO DAILY PRN for CONSTIPATION- 7TH LINE, (Reported) Memantine HCl 10 Mg Tablet, 10 MG PO BID, (Reported) Multivits, W-,Other Min 1 Each Tablet, 1 TAB PO DAILY, (Reported) Nystatin 60 Gm Powder, TP Q12H PRN for RASH, (Reported) Paroxetine HCl 10 Mg Tablet, 10 MG PO DAILY, (Reported) Potassium Chloride 10 Meq Tab.er.prt, 10 MEQ PO DAILY, (Reported) Pravastatin Sodium 40 Mg Tablet, 40 MG PO HS, (Reported) Simethicone 125 Mg Tab.chew, 125 MG PO QID PRN for GAS, (Reported) Tramadol HCl 50 Mg Tablet, 50 MG PO Q4H PRN for PAIN-MODERATE, (Reported) Trimethoprim 100 Mg Tablet, 100 MG PO HS, (Reported) Warfarin Sodium 3 Mg Tablet, 3 MG PO 1700, (Reported) Patient Home Medication List Home Medication List Reviewed: Yes Past Cviauof-Sfywoa-Nmqokj Hx Past Med/Social Hx: Reviewed Nursing Past Med/Soc Hx Patient Social History Alcohol Use: Denies Use Recreational Drug Use: No Smoking Status: Never a Smoker Recent Foreign Travel: No Contact w/Someone Who Travel: No Recent Infectious Disease Expo: No Recent Hopitalizations: No Seasonal Allergies Seasonal Allergies: No Past Medical History Surgeries: Yes Hysterectomy Respiratory: No Currently Using CPAP: No Cardiac: Yes (VC filter) Hypertension Neurological: Yes Dementia : No Genitourinary: No Gastrointestinal: Yes Gastroesophageal Reflux, Diverticulosis, Hiatal Hernia Musculoskeletal: No Endocrine: No HEENT: No Cancer: No Psychosocial: Yes Depression Integumentary: No Blood Disorders: Yes (anemia) Adverse Reaction/Blood Tranf: No Family Medical History Reviewed Nursing Family Hx Review of Systems-General Constitutional: no symptoms reported EENTM: no symptoms reported Respiratory: no symptoms reported Cardiovascular: no symptoms reported Gastrointestinal: no symptoms reported Musculoskeletal: other (Left leg pain) Skin: no symptoms reported Psychiatric/Neurological: No Symptoms Reported, Other (dementia) Physical Exam-General Problems Physical Exam Vital Signs Vital Signs - First Documented 01/21/18 01/21/18 01/21/18 23:25 23:37 23:40 Temp 98.2 Pulse 100 Resp 14 B/P (MAP) 105/74 (84) Pulse Ox 97 O2 Delivery Nasal Cannula O2 Flow Rate 2.00 Capillary Refill : Less Than 3 Seconds General Appearance: WD/WN, no apparent distress Eyes: Bilateral Eye PERRL, Bilateral Eye EOMI HEENT: PERRL/EOMI, normal ENT inspection Neck: supple, normal inspection Respiratory: no respiratory distress, no accessory muscle use Cardiovascular: normal peripheral pulses, regular rate, rhythm Peripheral Pulses: 2+ Dorsalis Pedis (R), 2+ Left Dors-Pedis (L) Gastrointestinal: non tender, soft Extremities: other (LLE: moderate edema around the knee, skin intact, no open wounds, all compartments soft/compressible, motor/sensation grossly intact, foot well perfused) Neurologic/Psychiatric: mash preparatory operator II-XII nml as tested, no motor/sensory deficits Skin: normal color, warm/dry Comments Laboratory Tests 01/22/18 10:43: Lactic Acid Level 1.76 01/23/18 07:08: White Blood Count 9.8, Red Blood Count 2.51L, Hemoglobin 7.7#L, Hematocrit 24L, Mean Corpuscular Volume 97, Mean Corpuscular Hemoglobin 31, Mean Corpuscular Hemoglobin Concent 32, Red Cell Distribution Width 14.8H, Platelet Count 84L, Mean Platelet Volume 11.4H, Neutrophils (%) (Auto) 71, Lymphocytes (%) (Auto) 16 , Monocytes (%) (Auto) 12, Eosinophils (%) (Auto) 1, Basophils (%) (Auto) 0, Neutrophils # (Auto) 6.9, Lymphocytes # (Auto) 1.5, Monocytes # (Auto) 1.2H, Eosinophils # (Auto) 0.1, Basophils # (Auto) 0.0, Sodium Level 143, Potassium Level 4.0, Chloride Level 115H, Carbon Dioxide Level 19L, Anion Gap 9, Blood Urea Nitrogen 21H, Creatinine 0.67, Estimat Glomerular Filtration Rate > 60, BUN /Creatinine Ratio 31, Glucose Level 99, Calcium Level 7.9L 01/23/18 07:50: Prothrombin Time 19.1H, INR Comment 1.6H Results/Procedures Lab Laboratory Tests 01/22/18 03:41 01/22/18 08:15 01/23/18 07:08 Assessment/Plan Assessment/Plan Admission Diagnosis/Plan 82 y/o female s/p mechanical GLF She has sustained a displaced, comminuted extraarticular fracture of the Left distal femur. This is an unstable injury that will require operative fixation. Surgical plan to include closed reduction with placement of a retrograde femoral nail, possible ORIF with side plate and screws. Patient receiving transfusion of prbcs for anemia. She has been cleared for OR from medicine and cardiology standpoint. Will plan for OR today. I discussed the treatment plan with the family/POA in detail including the risks , benefits, potential complications, expected outcomes and indications for surgery. All of their questions have been answered to their satisfaction. They have given informed written consent to proceed as planned. Clinical Quality Measures DVT/VTE Risk/Contraindication: Risk Factor Score Per Nursin RFS Level Per Nursing on Admit: 4+=Very High TEMI ALEGRE DO Jan 23, 2018 09:50
[2018-01-23] MEDS ORDERED: ceFAZolin 1,000 MG/10 ML (ANCEF) VIAL ONE (10:50)
[2018-01-23] MEDS: MEMANTINE 10 MG (NAMENDA) TABLET PO SCH ×2 (12:57→21:01)
[2018-01-23] MEDS: DIVALPROEX EXT RELEASE 500 MG (DEPAKOTE ER) TAB PO SCH (12:57)
[2018-01-23] MEDS: PARoxetine 10 MG (PAXIL) TAB PO SCH (12:58)
[2018-01-23] MEDS: DOCUSATE SODIUM 100 MG (COLACE) CAP PO SCH ×2 (12:58→21:01)
[2018-01-23] MEDS ORDERED: ONDANSETRON 4 MG/2 ML (SDV) Z0FRAN IVP PRN (13:00)
[2018-01-23] MEDS ORDERED: MEPERIDINE (DEMEROL) INJ 50 MG/ML IVP PRN (13:00)
[2018-01-23] MEDS ORDERED: morphine INJ 10 MG/ML 1ML (SYR OR VIAL) IVP PRN (13:00)
--- NOTE | 2018-01-23 13:09 | Progress Note-Post Operative ---
Post-Operative Progess Note Surgeon (s)/Hot Blast Worker (s) Surgeon TEMI ALEGRE DO Hot Blast Worker: Zain Dickerson PA-C Pre-Operative Diagnosis Closed, comminuted, extraarticular fracture Left distal femur Post-Operative Diagnosis Same Procedure & Operative Findings Date of Procedure 01/23/18 Procedure Performed/Findings Closed reduction/placement of retrograde femoral nail Left femur Poor bone quality Anesthesia Type GETA Estimated Blood Loss Estimated blood loss (mL): 150 mL Specimens/Packing Specimens Removed None Packing: None Complications: none Disposition: stable, to PACU TEMI ALEGRE DO Jan 23, 2018 13:09
--- NOTE | 2018-01-23 13:32 | Diagnostic Imaging Report ---
INDICATION: Fracture. Fluoroscopy utilized during nailing of femoral fracture. Total fluoroscopy time 288 seconds. IMPRESSION: 288 seconds of fluoroscopic time utilized during orthopedic procedure. Dictated by: Dictated on workstation # [id number]
[2018-01-23] MEDS ORDERED: EPINEPHrine 0.1 MG/ML 10 ML (HOSPIRA) SYR INJ ONE (14:52)
[2018-01-23 16:04] LABS: HEMOGLOBIN 8.9 G/DL (11.5-16.0)
--- NOTE | 2018-01-23 17:16 | Cardiology Progress Note ---
Cardiology SOAP Progress Note Subjective: Seen immediately post surgery. No cardiac complaints. Objective: I&O/Vital Signs 01/23/18 01/23/18 01/23/18 01/23/18 07:00 07:00 08:00 09:00 Pulse 99 99 99 Resp 16 15 B/P (MAP) 113/60 (77) Pulse Ox 100 90 98 O2 Delivery Nasal Cannula Nasal Cannula O2 Flow Rate 2.00 2.00 01/23/18 01/23/18 01/23/18 01/23/18 09:00 10:27 12:00 14:15 Temp 99.4 Pulse 98 105 101 Resp 15 17 B/P (MAP) 103/75 (84) 103/75 Pulse Ox 99 98 O2 Delivery Nasal Cannula Nasal Cannula Nasal Cannula O2 Flow Rate 2.00 2.00 2.00 01/23/18 01/23/18 01/23/18 01/23/18 14:18 14:21 14:33 16:00 Temp 96.9 96.9 97.0 97.2 Pulse 103 103 107 Resp 13 13 15 B/P (MAP) 118/65 112/61 102/64 Pulse Ox 100 100 96 O2 Delivery Nasal Cannula Nasal Cannula Nasal Cannula O2 Flow Rate 2.00 2.00 2.00 01/23/18 16:29 Temp 98.6 Pulse 100 Resp 12 B/P (MAP) 115/73 Pulse Ox 99 O2 Delivery Nasal Cannula O2 Flow Rate 2.00 01/23/18 00:00 Intake Total 4200 ml Output Total 395 ml Balance 3805 ml Weight (Pounds): 196 Weight (Ounces): 8.0 Weight (Calculated Kilograms): 89.903644 Constitutional: appears stated age; No apparent distress; well-developed, well- nourished Respiratory: No accessory muscle use, No respiratory distress, No chest tender , No chest expansion is symmetric; chest is bilaterally symmetric; No lungs clear to percussion; lungs clear to auscultation; No crackles, No rhonchi, No rales, No stridor, No wheezing, No pleural rub, No other Cardiovascular: regular rate-rhythm; No irregularly irregular, No extra beats, No parasternal heave is noted, No JVD, No edema, No bradycardia, No tachycardia , No point of maximal impulse, No cardiac thrills are palpable; S1 and S2; No gallop/S3, No gallop/S4, No diastolic murmur, No systolic murmur, No friction rub, No click, No other Gastrointestional: No tender, No soft, No round, No distended, No pulsatile mass, No organomegaly, No guarding, No rebound, No tenderness, No hernia, No mass, No audible bowel sounds, No abnormal bowel sounds, No abdominal bruits, No spleenomegaly, No other Extremities: No normal range of motion, No non-tender, No normal inspection, No pedal edema, No calf tenderness, No normal capillary refill, No pelvis stable , No calf tenderness, No inflammation, No pedal edema, No slow capillary refill , No swelling, No other, No abrasion, No clubbing, No cyanosis, No ecchymosis, No laceration, No no lower extremity edema bilateral, No significant edema; tenderness; No wound Neurologic/Psychiatric: alert, oriented x 3, power is 5/5 both on sides Skin: No normal color, No warm/dry, No cyanosis, No cool, No diaphoresis, No damp, No ecchymosis, No jaundice, No mottled, No pallor, No rash, No tattoos/ piercings, No ulcerations, No rash on exposed areas, No ulcerations on exposed areas, No other Results/Procedures: Labs Laboratory Tests 01/23/18 07:08: White Blood Count 9.8, Red Blood Count 2.51L, Hemoglobin 7.7#L, Hematocrit 24L, Mean Corpuscular Volume 97, Mean Corpuscular Hemoglobin 31, Mean Corpuscular Hemoglobin Concent 32, Red Cell Distribution Width 14.8H, Platelet Count 84L, Mean Platelet Volume 11.4H, Neutrophils (%) (Auto) 71, Lymphocytes (%) (Auto) 16 , Monocytes (%) (Auto) 12, Eosinophils (%) (Auto) 1, Basophils (%) (Auto) 0, Neutrophils # (Auto) 6.9, Lymphocytes # (Auto) 1.5, Monocytes # (Auto) 1.2H, Eosinophils # (Auto) 0.1, Basophils # (Auto) 0.0, Sodium Level 143, Potassium Level 4.0, Chloride Level 115H, Carbon Dioxide Level 19L, Anion Gap 9, Blood Urea Nitrogen 21H, Creatinine 0.67, Estimat Glomerular Filtration Rate > 60, BUN /Creatinine Ratio 31, Glucose Level 99, Calcium Level 7.9L 01/23/18 07:50: Prothrombin Time 19.1H, INR Comment 1.6H 01/23/18 13:58: Hemoglobin 8.9L, Hematocrit 27L Microbiology 01/22/18 Blood Culture - Preliminary, Resulted No growth 01/21/18 MRSA Screen - Final, Complete MRSA not isolated A/P: Assessment/Dx: Preoperative cardiovascular risk assessment, previous history of atrial fibrillation, PE, Hypertension, Hyperlipidemia, Plan: Post orthopedic surgery. Atrial fibrillation: Patient's EKG shows sinus tachycardia. Patient is already on warfarin and rate controlling agent. Hypertension: Continue outpatient medical therapy. Hyperlipidemia: Continue statin therapy. Thank you for your consultation. Please call me if you have any questions. Kishan March MD, FACP, FACC, FSCAI, FHRS, CCDS Interventional Cardiology Cardiac Electrophysiology Vascular Medicine and Endovascular Interventions Focused Exam Lactate Level 01/22/18 08:15: Lactic Acid Level 2.56*H 01/22/18 10:43: Lactic Acid Level 1.76 Hedy MARCH MD Jan 23, 2018 5:16 pm
[2018-01-23] MEDS: fentaNYL INJECTION 100 MCG/2 ML AMP IVP PRN ×2 (17:40→21:15)
[2018-01-23] MEDS: ceFAZolin 2 GM IV Premixed 50 ML IV SCH (17:41)
[2018-01-23] MEDS: SIMvastatin 20 MG (ZOCOR) TAB PO SCH (21:03)
[2018-01-24] VITALS (30 sets, daily range): BP systolic 66–132; BP diastolic 45–109
[2018-01-24] MEDS: HYDROcodone/APAP 5 MG/325 MG (LORTAB) TAB PO PRN ×5 (00:45→21:00)
[2018-01-24] MEDS: NS IV 1000 ML 1,000 ML IV SCH ×6 (01:29→21:09)
[2018-01-24 03:46] LABS: BASOPHILS % (AUTO) 0 % (0-10); EOSINOPHILS % (AUTO) 0 % (0-10); HEMATOCRIT 22 % (35-52); HEMOGLOBIN 7.4 G/DL (11.5-16.0); LYMPHOCYTES # (AUTO) 1.1 X 10^3 (1.0-4.0); LYMPHOCYTES % (AUTO) 10 % (12-44); MEAN CORPUSCULAR HEMOGLOBIN 31 PG (25-34); MEAN CORPUSCULAR HGB CONC 33 G/DL (32-36); MEAN CORPUSCULAR VOLUME 92 FL (80-99); MEAN PLATELET VOLUME 10.4 FL (7.4-10.4); MONOCYTES # (AUTO) 1.1 X 10^3 (0.0-1.0); MONOCYTES % (AUTO) 10 % (0-12); NEUTROPHILS % (AUTO) 81 % (42-75); PLATELET COUNT 104 10^3/uL (130-400); RED BLOOD COUNT 2.43 10^6/uL (4.35-5.85); RED CELL DISTRIBUTION WIDTH 15.9 % (10.0-14.5); WHITE BLOOD COUNT 11.1 10^3/uL (4.3-11.0)
[2018-01-24 04:04] LABS: BUN/CREATININE RATIO 26; CALCIUM 8.1 MG/DL (8.5-10.1); CARBON DIOXIDE 21 MMOL/L (21-32); CHLORIDE 114 MMOL/L (98-107); CREATININE SERUM 0.57 MG/DL (0.60-1.30); GFR ESTIMATED > 60; GLUCOSE 129 MG/DL (70-105); MAGNESIUM 1.9 MG/DL (1.8-2.4); PHOSPHORUS 2.4 MG/DL (2.3-4.7); POTASSIUM 4.2 MMOL/L (3.6-5.0); SODIUM 142 MMOL/L (135-145)
[2018-01-24] MEDS: ceFAZolin 2 GM IV Premixed 50 ML IV SCH ×2 (04:06→11:26)
[2018-01-24] MEDS: fentaNYL INJECTION 100 MCG/2 ML AMP IVP PRN ×3 (05:09→07:52)
[2018-01-24] MEDS: POTASSIUM CL 10MEQ/50ML IVPB 50 ML IV SCH (06:40)
[2018-01-24] MEDS: MAGNESIUM 1 GM/100 ML IVPB 100 ML IV SCH (06:43)
--- NOTE | 2018-01-24 06:46 | Pulmonary Progress Note ---
Subjective Time Seen by Provider: 07:01 Subjective/Events-last exam Pt is s/p surgery. Has been very confused through the night. Sepsis Event Evaluation Height, Weight, BMI Height: 5'5.00" Weight: 199lbs. 1.6oz. 90.145490tb; 32.0 BMI Method: Focused Exam Lactate Level 01/22/18 08:15: Lactic Acid Level 2.56*H 01/22/18 10:43: Lactic Acid Level 1.76 Exam Exam Vital Signs Date Time Temp Pulse Resp B/P (MAP) Pulse Ox O2 Delivery O2 Flow Rate FiO2 01/24/18 06:00 97 13 94/54 (67) 100 Nasal Cannula 2.00 01/24/18 05:00 102 16 115/86 (96) 90 Nasal Cannula 2.00 01/24/18 04:00 98.2 89 14 112/69 (83) 99 Nasal Cannula 2.00 01/24/18 03:00 93 13 96/71 (79) 100 Nasal Cannula 2.00 01/24/18 02:00 93 12 108/65 (79) 100 Nasal Cannula 2.00 01/24/18 01:00 96 13 115/68 (84) 99 Nasal Cannula 2.00 01/24/18 01:00 96 01/24/18 00:00 99.9 96 14 122/85 (97) 96 Nasal Cannula 2.00 01/24/18 00:00 98 Nasal Cannula 2.00 01/23/18 23:00 96 15 108/64 (79) 97 Nasal Cannula 2.00 01/23/18 22:00 101 14 93/52 (66) 99 Nasal Cannula 2.00 01/23/18 21:00 98 Nasal Cannula 2.00 01/23/18 21:00 106 17 106/43 (64) 99 Nasal Cannula 2.00 01/23/18 20:03 Nasal Cannula 2.00 01/23/18 20:00 99.9 109 19 98/51 (67) 98 Nasal Cannula 2.00 01/23/18 19:00 109 16 105/66 (79) 98 Nasal Cannula 2.00 01/23/18 19:00 109 01/23/18 18:00 110 10 78/63 (68) 98 Nasal Cannula 2.00 01/23/18 17:00 97 28 122/64 (83) 99 Nasal Cannula 2.00 01/23/18 16:29 98.6 100 12 115/73 99 Nasal Cannula 2.00 01/23/18 16:00 101 17 115/73 (87) 97 Nasal Cannula 2.00 01/23/18 16:00 97.2 01/23/18 15:00 105 15 88/46 (60) 98 Nasal Cannula 2.00 01/23/18 14:33 97.0 107 15 102/64 96 Nasal Cannula 2.00 01/23/18 14:21 96.9 103 13 112/61 100 Nasal Cannula 2.00 01/23/18 14:18 96.9 103 13 118/65 100 Nasal Cannula 2.00 01/23/18 14:15 101 01/23/18 14:00 101 21 121/58 (79) 97 Nasal Cannula 2.00 01/23/18 12:00 Nasal Cannula 2.00 01/23/18 10:27 99.4 105 17 103/75 98 Nasal Cannula 2.00 01/23/18 09:00 98 15 103/75 (84) 99 Nasal Cannula 2.00 01/23/18 09:00 98 Nasal Cannula 2.00 01/23/18 08:00 99 15 113/60 (77) 90 Nasal Cannula 2.00 01/23/18 07:00 99 16 100 01/23/18 07:00 99 I & O 01/24/18 07:00 Intake Total 2400 ml Output Total 1760 ml Balance 640 ml Height & Weight Height: 5'5.00" Weight: 199lbs. 1.6oz. 90.448920wc; 32.0 BMI Method: General Appearance: No Apparent Distress, Anxious, Chronically ill HEENT: PERRL/EOMI, Pharynx Normal Neck: Non Tender, Supple Respiratory: Lungs Clear, No Respiratory Distress Cardiovascular: Regular Rate, Rhythm, No Murmur Peripheral Pulses: 2+ Dorsalis Pedis (R), 2+ Left Dors-Pedis (L) Gastrointestinal: non tender, soft Extremity: No Calf Tenderness, No Pedal Edema Neurologic/Psychiatric: Alert, Disoriented Skin: Normal Color, Warm/Dry Results Lab Laboratory Tests 01/22/18 08:15 01/23/18 07:08 01/23/18 13:58 01/24/18 03:23 Assessment/Plan Assessment/Plan L Femur fracture s/p repair -Ortho consulted plan is for surgery today -pain control Anemia s/p 2 units PRBC -Check occult stool -repeat transfuse 2 units of PRBC now -check H&H Q12 for now Hypotension -montior -IVF- 125 -Monitor UO Atelectasis -Start IS and monitor Critical Care: Critically Ill Patient ANDRE CENTENO DO Jan 24, 2018 06:46
[2018-01-24] MEDS ORDERED: NALOXONE 0.4 MG/ML 1 ML (NARCAN) VIAL ONE (07:40)
[2018-01-24] MEDS: DOCUSATE SODIUM 100 MG (COLACE) CAP PO SCH ×2 (08:57→21:01)
[2018-01-24] MEDS: ENOXAPARIN 40 MG/0.4 ML (LOVENOX) SYR SC SCH (08:57)
[2018-01-24] MEDS: PARoxetine 10 MG (PAXIL) TAB PO SCH (08:57)
[2018-01-24] MEDS: MEMANTINE 10 MG (NAMENDA) TABLET PO SCH ×2 (08:57→21:01)
[2018-01-24] MEDS: DIVALPROEX EXT RELEASE 500 MG (DEPAKOTE ER) TAB PO SCH (08:57)
[2018-01-24] MEDS: PANTOPRAZOLE 40 MG (PROTONIX) VIAL IV SCH (08:57)
--- NOTE | 2018-01-24 08:59 | Progress Note-Hospitalist ---
Subjective HPI/CC On Admission Date Seen by Provider: Jan 24, 2018 Time Seen by Provider: 08:53 Pt is an 82yoCF with a reported PMH of dementia, PE, divierticulitis, HTn, HLD, and anemia who presented to outside ER after a fall at her senior care. She is unable to provide me any history regarding this fall and when asked why she is here she states "because and ambulance brought me." All history is obtained from the records. She apparently fell forward and hit the floor while trying to pull up her depends after sitting on the commode. Evaluation in ER revealed a negative CT head and c-spine from acute changes, but hip x-ray revealed a comminuted distal femur fracture. She was transferred here for orthopedic evaluation. Subjective/Events-last exam Called to bedside over respiratory status. Had just received fentanyl for pain and then developed respiratory arrest. Given Narcan and bagged for short period of time with good response. Focused Exam Lactate Level 01/22/18 08:15: Lactic Acid Level 2.56*H 01/22/18 10:43: Lactic Acid Level 1.76 Objective Exam Vital Signs Vital Signs Date Time Temp Pulse Resp B/P (MAP) Pulse Ox O2 Delivery O2 Flow Rate FiO2 01/24/18 08:44 Nasal Cannula 2.00 01/24/18 07:25 92 01/24/18 07:00 97 01/24/18 06:00 13 94/54 (67) 01/24/18 04:00 98.2 Capillary Refill : Less Than 3 Seconds General Appearance: Other (wall appearing- apneic) Respiratory: Other (short period of apenic- being bagged) Cardiovascular: Regular Rate, Rhythm, No Murmur Gastrointestinal: Normal Bowel Sounds, Non Tender, Soft Results/Procedures Lab Laboratory Tests 01/23/18 13:58 01/24/18 03:23 Patient resulted labs reviewed. Imaging: Reviewed Imaging Report Assessment/Plan Assessment and Plan Assess & Plan/Chief Complaint Left hip fracture Critical Care Critical Care: Critically Ill Patient Diagnosis/Problems Diagnosis/Problems (1) Respiratory arrest Status: Acute Assessment & Plan: Given Narcan with good response Bagged for short period of time Will decrease fentanyl dose and attempt to use only oral pain medications Now on nasal cannula- alert and oriented (2) Femur fracture, left Status: Acute Assessment & Plan: Ortho consulted, appreciate recs INR 1.6 Resume Warfarin when surgery okays Per NSQIP moderate risk at this time at 11.5% risk for serious event Qualifiers: Encounter type: initial encounter Femur location: shaft Fracture type: closed Fracture morphology: comminuted Fracture alignment: displaced Qualified Codes: S72.352A - Displaced comminuted fracture of shaft of left femur, initial encounter for closed fracture (3) Hypotension Status: Acute Assessment & Plan: Resolved Continue to monitor and hold home antihypertensives Qualifiers: Hypotension type: unspecified hypotension type Qualified Codes: I95.9 - Hypotension, unspecified (4) Dementia Assessment & Plan: Oriented to person and minor details of situation Qualifiers: Dementia type: unspecified type (5) Leukocytosis Status: Acute Assessment & Plan: Stable (6) History of pulmonary embolism Assessment & Plan: Notes report IVC filter in place Resume Warfarin when Surgery allows Clinical Quality Measures DVT/VTE Risk/Contraindication: Risk Factor Score Per Nursin RFS Level Per Nursing on Admit: 4+=Very High WAQAR OROPEZA MD Jan 24, 2018 8:58 am
--- NOTE | 2018-01-24 09:10 | Diagnostic Imaging Report ---
INDICATION: Femur fracture postoperative COMPARISON: 01/22/18 FINDINGS: Single view of the chest demonstrates continued low volumes lines. The heart is prominent without pulmonary edema. There is no pneumothorax or large effusion. Bony structures are stable. IMPRESSION: Unchanged aeration of the lungs. Dictated by: Dictated on workstation # [id number]
--- NOTE | 2018-01-24 11:03 | Diagnostic Imaging Report ---
PROCEDURE: US left lower extremity venous. TECHNIQUE: Multiple real-time grayscale images were obtained over the left lower extremity in various projections. Additional duplex Doppler and color Doppler images were also obtained. INDICATION: Left lower extremity swelling and pain. COMPARISON: None. FINDINGS: Visualized deep and superficial venous system is patent. There is no mass or DVT. IMPRESSION: Negative left lower extremity venous Doppler. Dictated by: Dictated on workstation # [id number]
--- NOTE | 2018-01-24 12:01 | Physical Therapy Progress Note ---
Therapy Progress Note Physician orders received for therapy evaluation. Orders were acknowledged 01/24. Therapist spoke with ICU nurse about patient mobility. Nursing recommended patient not be moved today. She is having 10/10 pain with all movement that is not controlled with pain meds. Pain causes her HR to spike. Pain meds given caused confusion and agitation. Meds given for the agitation resulted in respiratory problems. Pt interviewed by therapist. Walker and gait belt placed in the room. Will follow up with therapy evaluation 03/27. ABDIRASHID KAYE PT Jan 24, 2018 12:01
--- NOTE | 2018-01-24 12:07 | Anesthesia-General Post-Op ---
General Patient Condition Mental Status/LOC: Same as Preop Cardiovascular: Satisfactory Nausea/Vomiting: Absent Respiratory: Satisfactory Pain: Controlled Complications: Absent Post Op Complications Complications None Follow Up Care/Instructions Patient Instructions None needed. Anesthesia/Patient Condition Patient Condition Patient is doing well, no complaints, stable vital signs, no apparent adverse anesthesia problems. No complications reported per nursing. ROXANNA MEDINA CRNA Jan 24, 2018 12:07
--- NOTE | 2018-01-24 13:56 | Cardiology Progress Note ---
Cardiology SOAP Progress Note Subjective: No cardiac complaints. Objective: I&O/Vital Signs 01/24/18 01/24/18 01/24/18 01/24/18 02:00 03:00 04:00 05:00 Temp 98.2 Pulse 93 93 89 102 Resp 12 13 14 16 B/P (MAP) 108/65 (79) 96/71 (79) 112/69 (83) 115/86 (96) Pulse Ox 100 100 99 90 O2 Delivery Nasal Cannula Nasal Cannula Nasal Cannula Nasal Cannula O2 Flow Rate 2.00 2.00 2.00 2.00 01/24/18 01/24/18 01/24/18 01/24/18 06:00 07:00 07:00 07:00 Temp 100.0 Pulse 97 96 97 Resp 13 18 B/P (MAP) 94/54 (67) 100/72 (81) Pulse Ox 100 97 O2 Delivery Nasal Cannula Nasal Cannula O2 Flow Rate 2.00 2.00 01/24/18 01/24/18 01/24/18 01/24/18 07:25 08:00 08:44 09:00 Pulse 99 Resp 15 B/P (MAP) 95/66 (76) Pulse Ox 92 99 100 O2 Delivery Room Air Nasal Cannula Nasal Cannula Nasal Cannula O2 Flow Rate 2.00 2.00 2.00 01/24/18 01/24/18 01/24/18 01/24/18 09:00 10:00 10:28 10:40 Temp 101.0 100.0 Pulse 100 135 130 95 Resp 18 14 19 13 B/P (MAP) 102/71 (81) 123/66 (85) 123/66 103/65 Pulse Ox 100 97 97 97 O2 Delivery Nasal Cannula Nasal Cannula Nasal Cannula Nasal Cannula O2 Flow Rate 2.00 1.00 2.00 2.00 01/24/18 01/24/18 01/24/18 01/24/18 10:42 11:00 11:47 12:06 Temp 100.0 98.7 98.7 Pulse 96 99 124 111 Resp 13 15 20 17 B/P (MAP) 103/45 113/62 (79) 107/98 112/66 Pulse Ox 95 97 99 98 O2 Delivery Nasal Cannula Nasal Cannula Nasal Cannula Nasal Cannula O2 Flow Rate 2.00 1.00 1.00 1.00 01/24/18 12:20 Temp 100.0 Pulse 112 Resp 18 B/P (MAP) 131/62 Pulse Ox 98 O2 Delivery Nasal Cannula O2 Flow Rate 1.00 01/24/18 00:00 Intake Total 1175 ml Output Total 1475 ml Balance -300 ml Weight (Pounds): 199 Weight (Ounces): 1.6 Weight (Calculated Kilograms): [id number] Constitutional: appears stated age; No apparent distress; well-developed, well- nourished Respiratory: No accessory muscle use, No respiratory distress, No chest tender , No chest expansion is symmetric; chest is bilaterally symmetric; No lungs clear to percussion; lungs clear to auscultation; No crackles, No rhonchi, No rales, No stridor, No wheezing, No pleural rub, No other Cardiovascular: regular rate-rhythm; No irregularly irregular, No extra beats, No parasternal heave is noted, No JVD, No edema, No bradycardia, No tachycardia , No point of maximal impulse, No cardiac thrills are palpable; S1 and S2; No gallop/S3, No gallop/S4, No diastolic murmur, No systolic murmur, No friction rub, No click, No other Gastrointestional: No tender, No soft, No round, No distended, No pulsatile mass, No organomegaly, No guarding, No rebound, No tenderness, No hernia, No mass, No audible bowel sounds, No abnormal bowel sounds, No abdominal bruits, No spleenomegaly, No other Extremities: No normal range of motion, No non-tender, No normal inspection, No pedal edema, No calf tenderness, No normal capillary refill, No pelvis stable , No calf tenderness, No inflammation, No pedal edema, No slow capillary refill , No swelling, No other, No abrasion, No clubbing, No cyanosis, No ecchymosis, No laceration, No no lower extremity edema bilateral, No significant edema; tenderness; No wound Neurologic/Psychiatric: alert, oriented x 3, power is 5/5 both on sides Skin: No normal color, No warm/dry, No cyanosis, No cool, No diaphoresis, No damp, No ecchymosis, No jaundice, No mottled, No pallor, No rash, No tattoos/ piercings, No ulcerations, No rash on exposed areas, No ulcerations on exposed areas, No other Results/Procedures: Labs Laboratory Tests 01/23/18 13:58: Hemoglobin 8.9L, Hematocrit 27L 01/24/18 03:23: Hemoglobin 7.4L, Hematocrit 22L, White Blood Count 11.1H, Red Blood Count 2.43L , Mean Corpuscular Volume 92, Mean Corpuscular Hemoglobin 31, Mean Corpuscular Hemoglobin Concent 33, Red Cell Distribution Width 15.9H, Platelet Count 104L, Mean Platelet Volume 10.4, Neutrophils (%) (Auto) 81H, Lymphocytes (%) (Auto) 10L, Monocytes (%) (Auto) 10, Eosinophils (%) (Auto) 0, Basophils (%) (Auto) 0, Neutrophils # (Auto) 9.0H, Lymphocytes # (Auto) 1.1, Monocytes # (Auto) 1.1H, Eosinophils # (Auto) 0.0, Basophils # (Auto) 0.0, Sodium Level 142, Potassium Level 4.2, Chloride Level 114H, Carbon Dioxide Level 21, Anion Gap 7, Blood Urea Nitrogen 15, Creatinine 0.57L, Estimat Glomerular Filtration Rate > 60, BUN /Creatinine Ratio 26, Glucose Level 129H, Calcium Level 8.1L, Phosphorus Level 2.4, Magnesium Level 1.9 Microbiology 01/22/18 Blood Culture - Preliminary, Resulted No growth 01/21/18 MRSA Screen - Final, Complete MRSA not isolated A/P: Assessment/Dx: Preoperative cardiovascular risk assessment, previous history of atrial fibrillation, PE, Hypertension, Hyperlipidemia, Plan: Post orthopedic surgery. DVT prophylaxis. Atrial fibrillation: Patient's EKG shows sinus tachycardia. Patient is already on warfarin and rate controlling agent. Sinus tachycardia likely due to pain and anemia. Anemia: Transfusion. Hypertension: Continue outpatient medical therapy. Hyperlipidemia: Continue statin therapy. Thank you for your consultation. Please call me if you have any questions. Kishan March MD, FACP, FACC, FSCAI, FHRS, CCDS Interventional Cardiology Cardiac Electrophysiology Vascular Medicine and Endovascular Interventions Focused Exam Lactate Level 01/22/18 08:15: Lactic Acid Level 2.56*H 01/22/18 10:43: Lactic Acid Level 1.76 Hedy MARCH MD Jan 24, 2018 1:56 pm
--- NOTE | 2018-01-24 14:48 | Progress Note (SOAP) ---
Subjective Date Seen by Provider: Jan 24, 2018 Time Seen by Provider: 13:37 Subjective/Events-last exam Pt EDGARDO, apparently had an episode of respiratory arrest earlier secondary to overmedication, received narcan with good recovery. Pt currently alert, on NRB mask, pain controlled with oral medication, no cp/sob , no complaints. Focused Exam Lactate Level 01/22/18 08:15: Lactic Acid Level 2.56*H 01/22/18 10:43: Lactic Acid Level 1.76 Objective Exam Vital Signs Date Time Temp Pulse Resp B/P (MAP) Pulse Ox O2 Delivery O2 Flow Rate FiO2 01/24/18 13:58 100.5 103 15 113/63 98 Nasal Cannula 1.00 01/24/18 12:20 100.0 112 18 131/62 98 Nasal Cannula 1.00 01/24/18 12:06 98.7 111 17 112/66 98 Nasal Cannula 1.00 01/24/18 11:47 98.7 124 20 107/98 99 Nasal Cannula 1.00 01/24/18 11:00 99 15 113/62 (79) 97 Nasal Cannula 1.00 01/24/18 10:42 100.0 96 13 103/45 95 Nasal Cannula 2.00 01/24/18 10:40 100.0 95 13 103/65 97 Nasal Cannula 2.00 01/24/18 10:28 101.0 130 19 123/66 97 Nasal Cannula 2.00 01/24/18 10:00 135 14 123/66 (85) 97 Nasal Cannula 1.00 01/24/18 09:00 100 18 102/71 (81) 100 Nasal Cannula 2.00 01/24/18 09:00 100 Nasal Cannula 2.00 01/24/18 08:44 Nasal Cannula 2.00 01/24/18 08:00 99 15 95/66 (76) 99 Nasal Cannula 2.00 01/24/18 07:25 92 Room Air 01/24/18 07:00 100.0 01/24/18 07:00 97 01/24/18 07:00 96 18 100/72 (81) 97 Nasal Cannula 2.00 01/24/18 06:00 97 13 94/54 (67) 100 Nasal Cannula 2.00 01/24/18 05:00 102 16 115/86 (96) 90 Nasal Cannula 2.00 01/24/18 04:00 98.2 89 14 112/69 (83) 99 Nasal Cannula 2.00 01/24/18 03:00 93 13 96/71 (79) 100 Nasal Cannula 2.00 01/24/18 02:00 93 12 108/65 (79) 100 Nasal Cannula 2.00 01/24/18 01:00 96 13 115/68 (84) 99 Nasal Cannula 2.00 01/24/18 01:00 96 01/24/18 00:00 99.9 96 14 122/85 (97) 96 Nasal Cannula 2.00 01/24/18 00:00 98 Nasal Cannula 2.00 01/23/18 23:00 96 15 108/64 (79) 97 Nasal Cannula 2.00 01/23/18 22:00 101 14 93/52 (66) 99 Nasal Cannula 2.00 01/23/18 21:00 98 Nasal Cannula 2.00 01/23/18 21:00 106 17 106/43 (64) 99 Nasal Cannula 2.00 01/23/18 20:03 Nasal Cannula 2.00 01/23/18 20:00 99.9 109 19 98/51 (67) 98 Nasal Cannula 2.00 01/23/18 19:00 109 16 105/66 (79) 98 Nasal Cannula 2.00 01/23/18 19:00 109 01/23/18 18:00 110 10 78/63 (68) 98 Nasal Cannula 2.00 01/23/18 17:00 97 28 122/64 (83) 99 Nasal Cannula 2.00 01/23/18 16:29 98.6 100 12 115/73 99 Nasal Cannula 2.00 01/23/18 16:00 101 17 115/73 (87) 97 Nasal Cannula 2.00 01/23/18 16:00 97.2 01/23/18 15:00 105 15 88/46 (60) 98 Nasal Cannula 2.00 I & O 01/24/18 07:00 Intake Total 2400 ml Output Total 1760 ml Balance 640 ml Capillary Refill : Less Than 3 Seconds General Appearance: No Apparent Distress HEENT: PERRL/EOMI Respiratory: No Accessory Muscle Use, No Respiratory Distress Cardiovascular: Regular Rate, Rhythm, Normal Peripheral Pulses Gastrointestinal: non tender, soft Extremity: Other (LLE: moderate post-op edema knee, incisions c/d/i, all compartments soft/compressible, foot well perfused) Neurologic/Psychiatric: Alert, No Motor/Sensory Deficits, nutrition tech II-XII Norm as Tested Results Lab Laboratory Tests 01/24/18 03:23: White Blood Count 11.1H, Red Blood Count 2.43L, Hemoglobin 7.4L, Hematocrit 22L , Mean Corpuscular Volume 92, Mean Corpuscular Hemoglobin 31, Mean Corpuscular Hemoglobin Concent 33, Red Cell Distribution Width 15.9H, Platelet Count 104L, Mean Platelet Volume 10.4, Neutrophils (%) (Auto) 81H, Lymphocytes (%) (Auto) 10L, Monocytes (%) (Auto) 10, Eosinophils (%) (Auto) 0, Basophils (%) (Auto) 0, Neutrophils # (Auto) 9.0H, Lymphocytes # (Auto) 1.1, Monocytes # (Auto) 1.1H, Eosinophils # (Auto) 0.0, Basophils # (Auto) 0.0, Sodium Level 142, Potassium Level 4.2, Chloride Level 114H, Carbon Dioxide Level 21, Anion Gap 7, Blood Urea Nitrogen 15, Creatinine 0.57L, Estimat Glomerular Filtration Rate > 60, BUN /Creatinine Ratio 26, Glucose Level 129H, Calcium Level 8.1L, Phosphorus Level 2.4, Magnesium Level 1.9 Microbiology 01/22/18 Blood Culture - Preliminary, Resulted No growth 01/21/18 MRSA Screen - Final, Complete MRSA not isolated Procedures Closed reduction/placement of retrograde femoral nail Left femur Assessment/Plan Assessment/Plan Assess & Plan/Chief Complaint 82 y/o female s/p closed reduction/placement of retrograde femoral nail left femur for displaced, comminuted extraarticular fracture Left distal femur, POD # 1 Currently orthopedically stable Anemia: likely combination from acute injury/surgical blood loss and GI bleed, management per medicine Current pain control regimen VTE prophylaxis: OK to restart coumadin from ortho standpoint; SCDs Bowel regimen Mobilize OOB with PT/OT, NWB LLE D/C planning: OK to d/c back to SNF from ortho standpoint Clinical Quality Measures DVT/VTE Risk/Contraindication: Risk Factor Score Per Nursin RFS Level Per Nursing on Admit: 4+=Very High TEMI ALEGRE DO Jan 24, 2018 14:48
[2018-01-24] MEDS: SIMvastatin 20 MG (ZOCOR) TAB PO SCH (21:01)
[2018-01-25] VITALS (30 sets, daily range): BP systolic 90–145; BP diastolic 47–87
[2018-01-25] MEDS: HYDROcodone/APAP 5 MG/325 MG (LORTAB) TAB PO PRN ×3 (01:24→10:56)
[2018-01-25] MEDS: NS IV 1000 ML 1,000 ML IV SCH ×3 (01:24→13:19)
[2018-01-25] MEDS: fentaNYL INJECTION 100 MCG/2 ML AMP IVP PRN (02:06)
[2018-01-25 03:41] LABS: BASOPHILS % (AUTO) 0 % (0-10); EOSINOPHILS # (AUTO) 0.1 10^3/uL (0.0-0.3); EOSINOPHILS % (AUTO) 1 % (0-10); HEMATOCRIT 27 % (35-52); LYMPHOCYTES # (AUTO) 1.8 X 10^3 (1.0-4.0); LYMPHOCYTES % (AUTO) 20 % (12-44); MEAN CORPUSCULAR HEMOGLOBIN 31 PG (25-34); MEAN CORPUSCULAR HGB CONC 33 G/DL (32-36); MEAN CORPUSCULAR VOLUME 93 FL (80-99); MEAN PLATELET VOLUME 10.8 FL (7.4-10.4); MONOCYTES % (AUTO) 11 % (0-12); NEUTROPHILS % (AUTO) 68 % (42-75); PLATELET COUNT 116 10^3/uL (130-400); RED BLOOD COUNT 2.94 10^6/uL (4.35-5.85); RED CELL DISTRIBUTION WIDTH 15.6 % (10.0-14.5); WHITE BLOOD COUNT 8.9 10^3/uL (4.3-11.0)
[2018-01-25 03:59] LABS: BUN/CREATININE RATIO 26; CALCIUM 7.9 MG/DL (8.5-10.1); CARBON DIOXIDE 20 MMOL/L (21-32); CHLORIDE 114 MMOL/L (98-107); CREATININE SERUM 0.54 MG/DL (0.60-1.30); GFR ESTIMATED > 60; GLUCOSE 93 MG/DL (70-105); MAGNESIUM 1.8 MG/DL (1.8-2.4); PHOSPHORUS 1.9 MG/DL (2.3-4.7); POTASSIUM 3.7 MMOL/L (3.6-5.0); SODIUM 141 MMOL/L (135-145)
[2018-01-25] MEDS: KCL 20 MEQ TAB (K-DUR) PO SCH (05:09)
[2018-01-25] MEDS: POTASSIUM CL 10MEQ/50ML IVPB 50 ML IV SCH (05:09)
[2018-01-25] MEDS: MAGNESIUM 1 GM/100 ML IVPB 100 ML IV SCH (05:09)
--- NOTE | 2018-01-25 06:45 | Pulmonary Progress Note ---
Subjective Time Seen by Provider: 06:50 Subjective/Events-last exam pt is very weak and confused. Sepsis Event Evaluation Height, Weight, BMI Height: 5'5.00" Weight: 199lbs. 1.6oz. [id number]; 32.0 BMI Method: Focused Exam Lactate Level 01/22/18 08:15: Lactic Acid Level 2.56*H 01/22/18 10:43: Lactic Acid Level 1.76 Exam Exam Vital Signs Date Time Temp Pulse Resp B/P (MAP) Pulse Ox O2 Delivery O2 Flow Rate FiO2 01/25/18 06:00 101 13 131/87 (102) 99 Nasal Cannula 1.00 01/25/18 05:00 91 13 145/76 (99) 97 Nasal Cannula 1.00 01/25/18 04:00 97.8 01/25/18 04:00 87 12 128/75 (92) 100 Nasal Cannula 1.00 01/25/18 02:00 91 11 129/65 (86) 96 Nasal Cannula 1.00 01/25/18 01:00 92 13 123/77 (92) 99 Nasal Cannula 1.00 01/25/18 01:00 92 01/25/18 00:00 98.1 01/25/18 00:00 106 13 95/71 (79) 98 Nasal Cannula 1.00 01/25/18 00:00 99 Nasal Cannula 1.00 01/24/18 23:00 95 14 102/71 (81) 91 Room Air 01/24/18 22:06 96 22 94 Room Air 01/24/18 22:00 90 16 123/74 (90) 100 Nasal Cannula 1.00 01/24/18 21:00 90 13 105/62 (76) 99 Nasal Cannula 1.00 01/24/18 21:00 99 Nasal Cannula 1.00 01/24/18 20:00 97.2 90 13 91/55 (67) 97 Nasal Cannula 1.00 01/24/18 19:32 96 Nasal Cannula 1.00 01/24/18 19:00 104 01/24/18 19:00 104 11 114/67 (83) 97 Nasal Cannula 1.00 01/24/18 18:00 123 17 66/48 (54) 98 Nasal Cannula 1.00 01/24/18 17:00 105 18 92 Nasal Cannula 1.00 8/12/18 16:00 101 16 132/109 (117) 97 Nasal Cannula 1.00 01/24/18 15:00 101 18 108/64 (79) 97 Nasal Cannula 1.00 01/24/18 14:00 105 15 92/61 (71) 97 Nasal Cannula 1.00 01/24/18 13:58 100.5 103 15 113/63 98 Nasal Cannula 1.00 01/24/18 13:00 111 15 105/55 (72) 97 Nasal Cannula 1.00 01/24/18 13:00 109 01/24/18 12:20 100.0 112 18 131/62 98 Nasal Cannula 1.00 01/24/18 12:06 98.7 111 17 112/66 98 Nasal Cannula 1.00 01/24/18 12:00 112 15 112/66 (81) 98 Nasal Cannula 1.00 01/24/18 11:47 98.7 124 20 107/98 99 Nasal Cannula 1.00 01/24/18 11:00 99 15 113/62 (79) 97 Nasal Cannula 1.00 01/24/18 10:42 100.0 96 13 103/45 95 Nasal Cannula 2.00 01/24/18 10:40 100.0 95 13 103/65 97 Nasal Cannula 2.00 01/24/18 10:28 101.0 130 19 123/66 97 Nasal Cannula 2.00 01/24/18 10:00 135 14 123/66 (85) 97 Nasal Cannula 1.00 01/24/18 09:00 100 18 102/71 (81) 100 Nasal Cannula 2.00 01/24/18 09:00 100 Nasal Cannula 2.00 01/24/18 08:44 Nasal Cannula 2.00 01/24/18 08:00 99 15 95/66 (76) 99 Nasal Cannula 2.00 01/24/18 07:25 92 Room Air 01/24/18 07:00 100.0 01/24/18 07:00 97 01/24/18 07:00 96 18 100/72 (81) 97 Nasal Cannula 2.00 I & O 01/25/18 07:00 Intake Total 980 ml Output Total 1425 ml Balance -445 ml Height & Weight Height: 5'5.00" Weight: 199lbs. 1.6oz. 90.541866rp; 32.0 BMI Method: General Appearance: Anxious, Mild Distress HEENT: PERRL/EOMI Neck: Non Tender, Supple Respiratory: No Accessory Muscle Use, No Respiratory Distress Cardiovascular: Regular Rate, Rhythm, Normal Peripheral Pulses Peripheral Pulses: 2+ Dorsalis Pedis (R), 2+ Left Dors-Pedis (L) Gastrointestinal: non tender, soft Extremity: Other (LLE: moderate post-op edema knee, incisions c/d/i, all compartments soft/compressible, foot well perfused) Neurologic/Psychiatric: Alert, No Motor/Sensory Deficits, treatment coordinator II-XII Norm as Tested Skin: Normal Color, Warm/Dry Results Lab Laboratory Tests 01/23/18 07:08 01/23/18 13:58 01/24/18 03:23 01/24/18 16:22 01/24/18 18:04 01/25/18 03:16 Assessment/Plan Assessment/Plan S/P respiratory arrest L Femur fracture s/p repair -Ortho consulted plan is for surgery today -pain control Anemia s/p 2 units PRBC -Check occult stool -repeat transfuse 2 units of PRBC now -check H&H Q12 for now diastolic CHF with pulmonary edema and hypoxia -Decrease IVF to KVO Hypotension - resolved Atelectasis -Start IS and monitor Dementia/debility Consult PT/OT. Consult hospice care. Pt is already a DNR. She is very fragile and week. I don't expect her to do well over the next several weeks. Pt would be a good hospice candidate. Will make her cardiac step down status. ANDRE CENTENO DO Jan 25, 2018 06:45
--- NOTE | 2018-01-25 07:58 | Diagnostic Imaging Report ---
INDICATION: Postoperative examination. EXAMINATION: Chest, 01/25/2018. COMPARISON: 01/24/18. FINDINGS: The heart is stable. Pulmonary vasculature unchanged. Right hemidiaphragm elevated stable as well. There is no new process or acute process in the visualized lungs. No significant effusions. No pneumothorax. IMPRESSION: 1. Stable chest. Dictated by: Dictated on workstation # [id number]
[2018-01-25] MEDS: PANTOPRAZOLE 40 MG (PROTONIX) VIAL IV SCH (08:46)
[2018-01-25] MEDS: DIVALPROEX EXT RELEASE 500 MG (DEPAKOTE ER) TAB PO SCH (08:46)
[2018-01-25] MEDS: ENOXAPARIN 40 MG/0.4 ML (LOVENOX) SYR SC SCH (08:46)
[2018-01-25] MEDS: DOCUSATE SODIUM 100 MG (COLACE) CAP PO SCH ×2 (08:46→20:05)
[2018-01-25] MEDS: MEMANTINE 10 MG (NAMENDA) TABLET PO SCH ×2 (08:46→20:06)
[2018-01-25] MEDS: risperiDONE 0.25 MG (RisperDAL) TAB PO SCH ×2 (08:46→20:05)
[2018-01-25] MEDS: PARoxetine 10 MG (PAXIL) TAB PO SCH (08:48)
--- NOTE | 2018-01-25 08:54 | Cardiology Progress Note ---
Subjective Date Seen by Provider: Jan 25, 2018 Time Seen by Provider: 08:47 Subjective/Events-last exam Patient is laying down in bed, confused, denied any active pain. No shortness of breath. Review of Systems General: No Chills, No Night Sweats; Fatigue, Malaise; No Appetite, No Other HEENT: No Head Aches, No Visual Changes, No Eye Pain, No Ear Pain, No Dysphasia , No Sinus Congestion, No Post Nasal Drip, No Sore Throat, No Other Pulmonary: No Dyspnea, No Cough, No Pleuritic Chest Pain, No Other Cardiovascular: No: Chest Pain, Palpitations, Orthopnea, Paroxysmal Noc. Dyspnea, Edema, Lt Headedness, Other Focused Exam Lactate Level 01/22/18 10:43: Lactic Acid Level 1.76 Objective-Cardiology Exam Last Set of Vital Signs Vital Signs Capillary Refill : Less Than 3 Seconds I&O Intake and Output 01/25/18 00:00 Intake Total 1205 ml Output Total 1235 ml Balance -30 ml Intake Oral 1205 ml Output Urine Total 1235 ml # Bowel Movements 1 General: Alert, Cooperative, Mild Distress HEENT: Atraumatic, PERRLA Neck: Supple Lungs: Clear to Auscultation, Normal Air Movement Heart: Regular Rate, Normal S1, Normal S2 Abdomen: Normal Bowel Sounds Extremities: No Clubbing, No Cyanosis Skin: No Rashes Psych/Mental Status: Other (Confused) Results Lab Laboratory Tests 01/24/18 16:22 01/24/18 18:04 01/25/18 03:16 A/P-Cardiology Admission Diagnosis Hip fracture Paroxysmal atrial fibrillation Hypertension Hyperlipidemia Assessment/Plan Status post closed reduction with placement of femoral nail to the left femur, recovering well. Monitored by primary care team Paroxysmal atrial fibrillation, paroxysmal atrial tachycardia, has been on Cardizem as an outpatient I will restart Cardizem. 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 I will restart Coumadin and monitor INR closely. Hypertension, controlled, monitor blood pressure while on current medication, continue to monitor blood pressure after restarting Cardizem Hyperlipidemia, continue on statin Anemia, status post transfusion, continue to monitor H&H Confusion, dementia. Followed and managed by primary care physician Status post overdose with pain medication/respiratory arrest reversed with Narcan, followed by primary care team Clinical Quality Measures DVT/VTE Risk/Contraindication: Risk Factor Score Per Nursin RFS Level Per Nursing on Admit: 4+=Very High DARRELL COOPER MD Jan 25, 2018 08:54
--- NOTE | 2018-01-25 09:15 | Progress Note (SOAP) ---
Subjective Date Seen by Provider: Jan 25, 2018 Time Seen by Provider: 09:11 Subjective/Events-last exam Pt EDGARDO, alert, PT in room to mobilize pt OOB, pt c/o pain, remains at baseline MS, answers questions appropriately Focused Exam Lactate Level 01/22/18 10:43: Lactic Acid Level 1.76 Objective Exam Vital Signs Date Time Temp Pulse Resp B/P (MAP) Pulse Ox O2 Delivery O2 Flow Rate FiO2 01/25/18 08:53 99.0 111 18 133/78 (96) 98 Nasal Cannula 1.00 01/25/18 07:00 97 12 123/67 (85) 99 Nasal Cannula 1.00 01/25/18 07:00 97 01/25/18 06:50 98 Nasal Cannula 1.00 01/25/18 06:00 101 13 131/87 (102) 99 Nasal Cannula 1.00 01/25/18 05:00 91 13 145/76 (99) 97 Nasal Cannula 1.00 01/25/18 04:00 97.8 01/25/18 04:00 87 12 128/75 (92) 100 Nasal Cannula 1.00 01/25/18 02:00 91 11 129/65 (86) 96 Nasal Cannula 1.00 01/25/18 01:00 92 13 123/77 (92) 99 Nasal Cannula 1.00 01/25/18 01:00 92 01/25/18 00:00 98.1 01/25/18 00:00 106 13 95/71 (79) 98 Nasal Cannula 1.00 01/25/18 00:00 99 Nasal Cannula 1.00 01/24/18 23:00 95 14 102/71 (81) 91 Room Air 01/24/18 22:06 96 22 94 Room Air 01/24/18 22:00 90 16 123/74 (90) 100 Nasal Cannula 1.00 01/24/18 21:00 90 13 105/62 (76) 99 Nasal Cannula 1.00 01/24/18 21:00 99 Nasal Cannula 1.00 01/24/18 20:00 97.2 90 13 91/55 (67) 97 Nasal Cannula 1.00 01/24/18 19:32 96 Nasal Cannula 1.00 01/24/18 19:00 104 01/24/18 19:00 104 11 114/67 (83) 97 Nasal Cannula 1.00 01/24/18 18:00 123 17 66/48 (54) 98 Nasal Cannula 1.00 01/24/18 17:00 105 18 92 Nasal Cannula 1.00 01/24/18 16:00 101 16 132/109 (117) 97 Nasal Cannula 1.00 01/24/18 15:00 101 18 108/64 (79) 97 Nasal Cannula 1.00 01/24/18 14:00 105 15 92/61 (71) 97 Nasal Cannula 1.00 01/24/18 13:58 100.5 103 15 113/63 98 Nasal Cannula 1.00 01/24/18 13:00 111 15 105/55 (72) 97 Nasal Cannula 1.00 01/24/18 13:00 109 01/24/18 12:20 100.0 112 18 131/62 98 Nasal Cannula 1.00 01/24/18 12:06 98.7 111 17 112/66 98 Nasal Cannula 1.00 01/24/18 12:00 112 15 112/66 (81) 98 Nasal Cannula 1.00 01/24/18 11:47 98.7 124 20 107/98 99 Nasal Cannula 1.00 01/24/18 11:00 99 15 113/62 (79) 97 Nasal Cannula 1.00 01/24/18 10:42 100.0 96 13 103/45 95 Nasal Cannula 2.00 01/24/18 10:40 100.0 95 13 103/65 97 Nasal Cannula 2.00 01/24/18 10:28 101.0 130 19 123/66 97 Nasal Cannula 2.00 01/24/18 10:00 135 14 123/66 (85) 97 Nasal Cannula 1.00 I & O 01/25/18 07:00 Intake Total 980 ml Output Total 1425 ml Balance -445 ml Capillary Refill : Less Than 3 Seconds General Appearance: Anxious HEENT: Normal ENT Inspection Respiratory: No Accessory Muscle Use, No Respiratory Distress Cardiovascular: Regular Rate, Rhythm, Normal Peripheral Pulses Gastrointestinal: non tender, soft Extremity: Other (LLE: mild post-op edema/ecchymosis around the knee, all compartments soft/compressible, motor/sensation grossly intact, dressings c/d/i , foot well perfused) Neurologic/Psychiatric: Alert, No Motor/Sensory Deficits, chemistry instructor II-XII Norm as Tested Results Lab Laboratory Tests 8/12/18 16:22: Hemoglobin 9.0#L, Hematocrit 27L 01/24/18 18:04: Hemoglobin 9.0L, Hematocrit 28L 01/25/18 03:16: Hemoglobin 9.0L, Hematocrit 27L, White Blood Count 8.9, Red Blood Count 2.94L, Mean Corpuscular Volume 93, Mean Corpuscular Hemoglobin 31, Mean Corpuscular Hemoglobin Concent 33, Red Cell Distribution Width 15.6H, Platelet Count 116L, Mean Platelet Volume 10.8H, Neutrophils (%) (Auto) 68, Lymphocytes (%) (Auto) 20 , Monocytes (%) (Auto) 11, Eosinophils (%) (Auto) 1, Basophils (%) (Auto) 0, Neutrophils # (Auto) 6.0, Lymphocytes # (Auto) 1.8, Monocytes # (Auto) 1.0, Eosinophils # (Auto) 0.1, Basophils # (Auto) 0.0, Sodium Level 141, Potassium Level 3.7, Chloride Level 114H, Carbon Dioxide Level 20L, Anion Gap 7, Blood Urea Nitrogen 14, Creatinine 0.54L, Estimat Glomerular Filtration Rate > 60, BUN /Creatinine Ratio 26, Glucose Level 93, Calcium Level 7.9L, Phosphorus Level 1.9L, Magnesium Level 1.8 Microbiology 01/22/18 Blood Culture - Preliminary, Resulted No growth 01/21/18 MRSA Screen - Final, Complete MRSA not isolated Assessment/Plan Assessment/Plan Assess & Plan/Chief Complaint 82 y/o female s/p closed reduction/placement of retrograde femoral nail left femur for displaced, comminuted extraarticular fracture Left distal femur, POD # 2 Currently orthopedically stable Respiratory function improved Anemia: improved s/p transfusion prbcs Current pain control regimen VTE prophylaxis: coumadin/SCDs Bowel regimen Continue to mobilize OOB with PT/OT, strict NWB LLE, ROM exercises of the knee OK D/C planning: OK to d/c back to SNF from ortho standpoint Clinical Quality Measures DVT/VTE Risk/Contraindication: Risk Factor Score Per Nursin RFS Level Per Nursing on Admit: 4+=Very High TEMI ALEGRE DO Jan 25, 2018 09:15
--- NOTE | 2018-01-25 10:10 | Physical Therapy Evaluation ---
PT Evaluation-General Medical Diagnosis Admission Date Jan 21, 2018 at 23:25 Medical Diagnosis: left distal femur fracture Onset Date: Jan 21, 2018 Therapy Diagnosis Therapy Diagnosis: generalized weakness/debility Height/Weight Height (Feet): 5 Height (Inches): 5.00 Weight (Pounds): 206 Weight (Ounces): 5.0 Precautions Precautions/Isolations: Fall Prevention, Standard Precautions Weight Bear Status Right Lower Extremity: Right Full Weight Bearing Left Lower Extremity: Left Non Weight Bearing Referral Physician: Cong Reason for Referral: Evaluation/Treatment Medical History Pertinent Medical History: Dementia, HTN Additional Medical History anemia; PE Current History ER secondary to fall at [place] resulting in distal femur fracture with repair . Reviewed History: Yes Social History Home: Retirement Prior/Core FIM Prior Level of Function Functional [place] Measure 0=Not Assessed/NA 4=Minimal Assistance 1=Total Assistance 5=Supervision or Setup 2=Maximal Assistance 6=Modified [place] 3=Moderate Assistance 7=Complete [place] Bed Mobility: 4 Transfers (B,C,W/C) (FIM): 4 Gait: 4 PT Evaluation-Current Subjective Patient is in bed and confused. Did agree to up in chair. Pain Numeric Pain Scale: 10-Worst Possible Pain Location: Left Location Body Site: Thigh Pain Description: Acute Objective Patient Orientation: Confused Problem Solving: Poor Attachments: Oxygen, Bashir Catheter, IV ROM/Strength ROM Lower Extremities right LE WNL/left LE NT due to pain Strength Lower Extremities right LE 3-/5 grossly/left LE NT Integumentary/Posture Integumentary refer to nursing notes Bladder Incontinence: Bashir Cath Posture kyphotic Neuromuscular (Tone, Coordination, Reflexes) severely diminished coordination due to inactivity Sensory Vision: Wears Glasses Hearing: Impaired Sensation Right Lower Extremit: Intact Sensation Left Lower Extremity: Intact Transfers Functional [place] Measure 0=Not Assessed/NA 4=Minimal Assistance 1=Total Assistance 5=Supervision or Setup 2=Maximal Assistance 6=Modified [place] 3=Moderate Assistance 7=Complete [place] Transfers (B, C, W/C) (FIM): 1 Scootin Rollin Supine to/from Sit: 1 Sit to/from Stand: 1 bed t/f WC(FIM only if WC use): 1 dependent assist x 2 with strict NWB left LE. Dr. Gar present during part of treatment Balance Sitting Static: Poor Sitting Dynamic: Poor Standing Static: Poor Standing Dynamic: Poor Assessment/Needs 82 y.o. female, will benefit from skilled PT to address functional strength and mobility to improve current LOF. Patient is strict NWB left LE with patient unable to follow simple direction. From a PT standpoint, patient would benefit from extended care facility (she is established currently) for continued care. Rehab Potential: Guarded Post Rehab Potential-Barriers: disease process PT Halfway Goals Halfway Goals PT Halfway Goals Time Frame: Feb 12, 2018 Transfers (B,C,W/C) (FIM): 2 PT Plan Problem List Problem List: Activity Tolerance, Functional Strength, Safety, Balance, Transfer, Bed Mobility Treatment/Plan Treatment Plan: Continue Plan of Care Treatment Plan: Bed Mobility, Education, Functional Activity Lay, Functional Strength, Safety, Therapeutic Exercise, Transfers Treatment Duration: Feb 12, 2018 Frequency: 6 times per week Estimated Hrs Per Day: .5 hour per day Patient and/or Family Agrees t: Yes Discharge Recommendations Therapy D/C Recommendations: Retirement Placement, Long-Term (TCU/NH) Time/GCodes Time In: 855 Time Out: 913 Total Billed Treatment Time: 23 Total Billed Treatment 1 visit EVMod 23 min JUDY LUCAS PT Jan 25, 2018 10:10
[2018-01-25] MEDS: DILTIAZEM 180 MG (CARDIZEM CD) CAP PO SCH (12:06)
[2018-01-25] MEDS ORDERED: meTOprolol 5 MG/5 ML (LOPRESSOR) VIAL ONE (12:09)
[2018-01-25] MEDS ORDERED: meTOprolol 5 MG/5 ML (LOPRESSOR) VIAL IV ONE (12:15)
[2018-01-25] MEDS ORDERED: meTOprolol 5 MG/5 ML (LOPRESSOR) VIAL IV NR (15:00)
[2018-01-25] MEDS ORDERED: NS 1000 ML IV BAG IV ONE (15:00)
--- NOTE | 2018-01-25 15:11 | Progress Note-Hospitalist ---
Progress Note Progress Notes/Assess & Plan Date Seen 01/25/18 Time Seen by Provider: 15:09 Assessment & Plan The patient is an 82-year-old white female who was admitted with a femur fracture. She is alert but confused at the time of visit. She is known to have a past history of atrial fibrillation. In addition she apparently had a history of DVT. Orthopedics has okayed placing her on Lovenox. Physical exam: She seems confused and repeats herself. She has an irregular tachycardia. Lungs are clear to auscultation. Impression: Acute femur fracture. 2.atrial fibrillation. 3.history of DVT. Plan: Will start on therapeutic dose of Lovenox VIVIANA ESTEVES MD Jan 25, 2018 15:11
[2018-01-25] MEDS ORDERED: ENOXAPARIN 100 MG/1 ML (LOVENOX) SYR SC SCH (15:15)
--- NOTE | 2018-01-25 15:31 | Occupational Therapy Eval ---
OT Evaluation-General/PLF Medical Diagnosis Admission Date Jan 21, 2018 at 23:25 Medical Diagnosis: left distal femur fracture Onset Date: Jan 21, 2018 Therapy Diagnosis Therapy Diagnosis: decr self care, decr funct mobility, weakness Height/Weight Height (Feet): 5 Height (Inches): 5.00 Weight (Pounds): 206 Weight (Ounces): 5.0 Precautions Precautions/Isolations: Fall Prevention, Standard Precautions Safety Interventions: Bed Exit Alarm Weight Bear Status Weight Bearing Restriction: Non Weight Bearing Location Restriction: L LE Referral Physician: Cong Referral Reason: Evaluation/Treatment Medical History Pertinent Medical History: Dementia, Diverticulitis, GERD, HTN Additional Medical History PE. Anemia. IVF filter. Hiatal hernia. Depression Current History Fell at [place] while trying to pull up Depends. L hip fx with IM nail 01-23-18 Reviewed History: Yes Social History Home: [facility] ([facility] ADL-Prior Level of Function ADL PLOF Comments Per nursing at [facility], she required cues for all ADLs except getting ready for the evening meal. She was able to help quite a bit with upper body dressing but required assistance of one person for lower body dressing. It took two people to toilet her and one person to transfer her, using transfer pole and she was occasionally incontinent. She could feed herself and manage grooming with cues. She propelled her w/c by her feet. Occupation: retired office work OT Current Status Subjective Pt seen in room, up in bed, agreeable to OT. Pain reported as "it hurts some" but not rated or described. Appearance Sleepy. Almost immediately went back to sleep after OT Mental Status/Objective Attachments: Bashir Catheter, Oxygen, Telemetry Current Glasses/Contacts: Yes Hearing Aids: No Dentures/Partials: Yes Hand Dominance: Right Upper Extremity ROM Limited bilat shoulders Upper Extremity Strength Grossly 3+/5 bilat ADL-Treatment ADL-Current Nursing did not want pt out of bed due to rapid heart rate. She required dependant assist of two people to transfer with PT and was unable to maintain strict no weight bearing L UE. Functional [place] Measure 0=Not Assessed/NA 4=Minimal Assistance 1=Total Assistance 5=Supervision or Setup 2=Maximal Assistance 6=Modified [place] 3=Moderate Assistance 7=Complete IndependenceIRFPAI Quality Coding Scale 6 Independent with activity with or without an assistive device 5 Patient requires set up or clean up by helper. Patient completes activity by themselves 4 Supervision or touching assist (CGA). [place] provide cues , steadying assist 3 The helper provides less than half the effort to complete the activity 2 The helper provides more than half the effort to complete the activity 1 Dependent. The helper does all the effort to complete an activity 7 Patient refused to complete or attempt activity 9 The patient did not perform the activity before the current illness or injury 88 Not attempted due to Medical conditions or safety concerns Education OT Patient Education: Purpose of tx/functional activities, Rehab process Teaching Recipient: Patient Teaching Methods: Discussion Response to Teaching: Verbalize Understanding OT Fpc Goals Spiritual Care Coordinator Goals Time Frame: Feb 01, 2018 Eating (FIM): 5 Grooming(FIM): 5 Bathing(FIM): 4 Upper Body Dressing(FIM): 4 Lower Body Dressing(FIM): 3 Toileting(FIM): 1 (two person) Toilet/Commode Transfer(FIM): 1 (two person) Additional Goals: 2-Verbalize Understanding, 3-ImproveStrength/Lay 1=Demonstrate adherence to instructed precautions during ADL tasks. 2=Patient will verbalize/demonstrate understanding of assistive devices/ modifications for ADL. 3=Patient will improve strength/tolerance for activity to enable patient to perform ADL's. OT Education/Plan Problem List/Assessment Assessment: Decreased UE Strength, Dependent Transfers, Impaired Self-Care Skills Pt would benefit from skilled OT to increase her independence in basic self care to allow her to return to prior functional status Discharge Recommendations Plan/Recommendations: Continue POC Therapy D/C Recommendations: Snf (TCU/NH) (established at [facility]) Treatment Plan/Plan of Care Treatment,Training & Education: Yes Patient would benefit from OT for education, treatment and training to promote independence in ADL's, mobility, safety and/or upper extremity function for ADL' s. Plan of Care: ADL Retraining, Functional Mobility, UE Funct Exercise/Act, UE Neuromus Re-Ed/Coord Treatment Duration: Feb 01, 2018 Frequency: 5 times per week Estimated Hrs Per Day: .5 hour per day Agreement: Yes Rehab Potential: Guarded Time/GCodes Start Time: 15:06 Stop Time: 15:15 Total Time Billed (hr/min): 9 Billed Treatment Time visit, 9 minutes evaluation low intensity CHACHA GROSS OT Jan 25, 2018 15:31
[2018-01-25] MEDS: warFARin 3 MG (COUMADIN) TAB PO SCH (17:28)
[2018-01-25 18:37] LABS: HEMOGLOBIN 9.6 G/DL (11.5-16.0)
[2018-01-25] MEDS: ENOXAPARIN 100 MG/1 ML (LOVENOX) SYR SC SCH (20:05)
[2018-01-25] MEDS: SIMvastatin 20 MG (ZOCOR) TAB PO SCH (20:05)
[2018-01-26] VITALS: BP 141/67
[2018-01-26 04:00] VITALS: BP 129/76
[2018-01-26 04:34] LABS: BASOPHILS % (AUTO) 0 % (0-10); EOSINOPHILS # (AUTO) 0.1 10^3/uL (0.0-0.3); EOSINOPHILS % (AUTO) 2 % (0-10); HEMATOCRIT 28 % (35-52); HEMOGLOBIN 9.2 G/DL (11.5-16.0); LYMPHOCYTES # (AUTO) 1.8 X 10^3 (1.0-4.0); LYMPHOCYTES % (AUTO) 24 % (12-44); MEAN CORPUSCULAR HEMOGLOBIN 31 PG (25-34); MEAN CORPUSCULAR HGB CONC 33 G/DL (32-36); MEAN CORPUSCULAR VOLUME 94 FL (80-99); MEAN PLATELET VOLUME 10.8 FL (7.4-10.4); MONOCYTES # (AUTO) 0.8 X 10^3 (0.0-1.0); MONOCYTES % (AUTO) 11 % (0-12); NEUTROPHILS # (AUTO) 4.9 X 10^3 (1.8-7.8); NEUTROPHILS % (AUTO) 64 % (42-75); PLATELET COUNT 126 10^3/uL (130-400); RED CELL DISTRIBUTION WIDTH 15.3 % (10.0-14.5); WHITE BLOOD COUNT 7.7 10^3/uL (4.3-11.0)
[2018-01-26] MEDS: NS IV 1000 ML 1,000 ML IV SCH (05:09)
[2018-01-26 05:54] LABS: INR 1.1 (0.8-1.4); PROTHROMBIN TIME PATIENT 14.3 SEC (12.2-14.7)
[2018-01-26 06:02] LABS: BUN/CREATININE RATIO 19; CALCIUM 8.1 MG/DL (8.5-10.1); CARBON DIOXIDE 23 MMOL/L (21-32); CHLORIDE 111 MMOL/L (98-107); CREATININE SERUM 0.52 MG/DL (0.60-1.30); GFR ESTIMATED > 60; GLUCOSE 89 MG/DL (70-105); MAGNESIUM 1.8 MG/DL (1.8-2.4); PHOSPHORUS 1.9 MG/DL (2.3-4.7); POTASSIUM 3.5 MMOL/L (3.6-5.0); SODIUM 142 MMOL/L (135-145)
[2018-01-26] MEDS: MAGNESIUM 1 GM/100 ML IVPB 100 ML IV SCH (06:04)
[2018-01-26] MEDS: POTASSIUM CL 10MEQ/50ML IVPB 50 ML IV SCH (06:04)
[2018-01-26] MEDS: KCL 20 MEQ TAB (K-DUR) PO SCH (06:05)
--- NOTE | 2018-01-26 06:12 | Cardiology Progress Note ---
Subjective Date Seen by Provider: Jan 26, 2018 Time Seen by Provider: 06:10 Subjective/Events-last exam Patient is laying down in bed, sleeping, was confused yesterday. Had an episode of atrial fibrillation with rapid ventricular response spondylitic 22 doses of IV Lopressor and oral Cardizem. Heart rate is back to sinus rhythm with controlled rate Review of Systems General: No Chills, No Night Sweats; Fatigue, Malaise; No Appetite, No Other HEENT: No Head Aches, No Visual Changes, No Eye Pain, No Ear Pain, No Dysphasia , No Sinus Congestion, No Post Nasal Drip, No Sore Throat, No Other Pulmonary: No Dyspnea, No Cough, No Pleuritic Chest Pain, No Other Cardiovascular: No: Chest Pain, Palpitations, Orthopnea, Paroxysmal Noc. Dyspnea, Edema, Lt Headedness, Other Objective-Cardiology Exam Last Set of Vital Signs Vital Signs 01/25/18 01/25/18 01/26/18 08:53 20:37 04:00 Temp 99.0 Pulse 80 Resp 18 B/P (MAP) 129/76 (93) Pulse Ox 98 O2 Delivery Nasal Cannula O2 Flow Rate 1.00 FiO2 24 Capillary Refill : Less Than 3 Seconds I&O Intake and Output 01/26/18 00:00 Intake Total 800 ml Output Total 1500 ml Balance -700 ml Intake Oral 300 ml IV Total 500 ml Output Urine Total 1500 ml General: Alert, Cooperative, Mild Distress HEENT: Atraumatic, PERRLA Neck: Supple Lungs: Clear to Auscultation, Normal Air Movement Heart: Regular Rate, Normal S1, Normal S2 Abdomen: Normal Bowel Sounds Extremities: No Clubbing, No Cyanosis Skin: No Rashes Psych/Mental Status: Other (Confused) Results Lab Laboratory Tests 01/25/18 16:01 01/25/18 18:31 01/26/18 04:05 01/26/18 05:37 A/P-Cardiology Admission Diagnosis Hip fracture Paroxysmal atrial fibrillation Hypertension Hyperlipidemia Assessment/Plan Status post closed reduction with placement of femoral nail to the left femur, recovering well. Monitored by primary care team Paroxysmal atrial fibrillation, paroxysmal atrial tachycardia, had a transient episode of atrial fibrillation with rapid ventricular response, back to sinus rhythm, continue on Cardizem orally. History of DVT/PE, maintained on Coumadin as an outpatient, back on Coumadin and therapeutic dose of Lovenox. Monitor INR. Recommended INR level 2-3 Hypertension, controlled, monitor blood pressure while on current medication Hyperlipidemia, continue on statin Anemia, status post transfusion, continue to monitor H&H Confusion, dementia. Followed and managed by primary care physician Status post overdose with pain medication/respiratory arrest reversed with Narcan, followed by primary care team Clinical Quality Measures DVT/VTE Risk/Contraindication: Risk Factor Score Per Nursin RFS Level Per Nursing on Admit: 4+=Very High DARRELL COOPER MD Jan 26, 2018 06:11
[2018-01-26] MEDS ORDERED: KCL 20 MEQ TAB (K-DUR) PO ONE (07:15)
--- NOTE | 2018-01-26 07:58 | Diagnostic Imaging Report ---
INDICATION: Postoperative, femur fracture. TECHNIQUE: Single view chest 3:20 a.m. CORRELATION STUDY: 01/25/2018. FINDINGS: Overall limited depth of inspiration. Heart size enlarged. Vasculature stable. Unchanged elevation of right diaphragm with right lung volume loss. No definitive new infiltrate. IMPRESSION: 1. Cardiac enlargement without failure. Dictated by: Dictated on workstation # [id number]
[2018-01-26 08:00] VITALS: BP 127/66
--- NOTE | 2018-01-26 08:49 | Physical Therapy Daily Note ---
PT Daily Note-Current Subjective Patient had received Ativan last evening and is still lethargic and unsafe for OOB activities. Pain Numeric Pain Scale: 10-Worst Possible Pain Location: Left Location Body Site: Knee Pain Description: Acute Mental Status Patient Orientation: Confused Attachments: Bashir Catheter, IV Transfers Functional [place] Measure 0=Not Assessed/NA 4=Minimal Assistance 1=Total Assistance 5=Supervision or Setup 2=Maximal Assistance 6=Modified [place] 3=Moderate Assistance 7=Complete IndependenceIRFPAI Quality Coding Scale 6 Independent with activity with or without an assistive device 5 Patient requires set up or clean up by helper. Patient completes activity by themselves 4 Supervision or touching assist (CGA). [place] provide cues , steadying assist 3 The helper provides less than half the effort to complete the activity 2 The helper provides more than half the effort to complete the activity 1 Dependent. The helper does all the effort to complete an activity 7 Patient refused to complete or attempt activity 9 The patient did not perform the activity before the current illness or injury 88 Not attempted due to Medical conditions or safety concerns Weight Bearing Right Lower Extremity: Right Full Weight Bearing Left Lower Extremity: Left Non Weight Bearing Exercises Supine Ex: Ankle pumps, Heel Slides, Hip abd/add Supine Reps: 10 (PROM) Assessment Patient yells with bilateral LE PROM. PT ceased treatment due to patient's inability to tolerate. PT Cylinder Honer Goals Cylinder Honer Goals PT Skilled Nursing Goals Time Frame: Feb 12, 2018 Transfers (B,C,W/C) (FIM): 2 PT Plan Treatment/Plan Treatment Plan: Continue Plan of Care Treatment Plan: Bed Mobility, Education, Functional Activity Lay, Functional Strength, Safety, Therapeutic Exercise, Transfers Treatment Duration: Feb 12, 2018 Frequency: 6 times per week Estimated Hrs Per Day: .5 hour per day Patient and/or Family Agrees t: Yes Time/GCodes Time In: 800 Time Out: 808 Total Billed Treatment Time: 8 Total Billed Treatment 1 visit EX 8 min JUDY LUCAS PT Jan 26, 2018 08:49
--- NOTE | 2018-01-26 08:55 | Pulmonary Progress Note ---
Subjective Time Seen by Provider: 08:53 Subjective/Events-last exam Pt still confused. Sepsis Event Evaluation Height, Weight, BMI Height: 5'5.00" Weight: 219lbs. 9.0oz. 99.834377rs; 32.0 BMI Method: Exam Exam Vital Signs Date Time Temp Pulse Resp B/P (MAP) Pulse Ox O2 Delivery O2 Flow Rate FiO2 01/26/18 07:58 98.8 01/26/18 07:00 76 01/26/18 04:00 80 18 129/76 (93) 98 Nasal Cannula 1.00 01/26/18 01:00 87 01/26/18 00:00 87 15 141/67 (91) 98 Nasal Cannula 1.00 01/25/18 22:00 92 16 119/70 (86) 100 Nasal Cannula 1.00 01/25/18 21:00 91 31 105/57 (73) 99 Nasal Cannula 1.00 01/25/18 21:00 98 Nasal Cannula 1.00 01/25/18 20:37 102 92 24 01/25/18 20:00 91 16 135/68 (90) 97 Nasal Cannula 1.00 01/25/18 19:41 94 15 104/61 (75) 95 Nasal Cannula 1.00 01/25/18 19:00 93 01/25/18 19:00 93 14 111/65 (80) 94 Room Air 01/25/18 18:00 102 34 104/58 (73) 92 Nasal Cannula 1.00 01/25/18 17:45 106 30 106/72 (83) 91 Nasal Cannula 1.00 01/25/18 17:30 97 17 103/80 (88) 92 Nasal Cannula 1.00 01/25/18 17:15 90 18 90/52 (65) 93 Nasal Cannula 1.00 01/25/18 17:00 94 15 96/57 (70) 93 Nasal Cannula 1.00 01/25/18 16:45 89 13 92/71 (78) 92 Nasal Cannula 1.00 01/25/18 16:30 91 18 92/62 (72) 93 Nasal Cannula 1.00 01/25/18 16:15 90 21 91/47 (62) 92 Nasal Cannula 1.00 01/25/18 16:00 94 15 96/57 (70) 93 Nasal Cannula 1.00 01/25/18 15:45 92 13 105/55 (72) 92 Nasal Cannula 1.00 01/25/18 15:30 92 14 102/49 (66) 92 Nasal Cannula 1.00 01/25/18 15:15 96 15 102/56 (71) 93 Nasal Cannula 1.00 01/25/18 15:00 96 13 119/67 (84) 94 Nasal Cannula 1.00 01/25/18 14:00 126 15 109/61 (77) 98 Nasal Cannula 1.00 01/25/18 13:00 109 01/25/18 13:00 109 12 109/86 (94) Nasal Cannula 1.00 01/25/18 12:00 137 18 Nasal Cannula 1.00 01/25/18 11:00 98 12 Nasal Cannula 1.00 01/25/18 10:00 101 25 108/56 (73) Nasal Cannula 1.00 01/25/18 08:53 99.0 111 18 133/78 (96) 98 Nasal Cannula 1.00 I & O 01/26/18 07:00 Intake Total 800 ml Output Total 1475 ml Balance -675 ml Height & Weight Height: 5'5.00" Weight: 219lbs. 9.0oz. 99.752852ww; 32.0 BMI Method: General Appearance: Anxious HEENT: Normal ENT Inspection Neck: Non Tender, Supple Respiratory: No Accessory Muscle Use, No Respiratory Distress Cardiovascular: Regular Rate, Rhythm, Normal Peripheral Pulses Peripheral Pulses: 2+ Dorsalis Pedis (R), 2+ Left Dors-Pedis (L) Gastrointestinal: non tender, soft Extremity: Other (LLE: mild post-op edema/ecchymosis around the knee, all compartments soft/compressible, motor/sensation grossly intact, dressings c/d/i , foot well perfused) Neurologic/Psychiatric: Alert, No Motor/Sensory Deficits, senior windows engineer II-XII Norm as Tested Skin: Normal Color, Warm/Dry Results Lab Laboratory Tests 01/24/18 16:22 01/24/18 18:04 01/25/18 03:16 01/25/18 16:01 01/25/18 18:31 01/26/18 04:05 01/26/18 05:37 Assessment/Plan Assessment/Plan S/P respiratory arrest L Femur fracture s/p repair -pain control Anemia s/p 2 units PRBC -Check occult stool -monitor diastolic CHF with pulmonary edema and hypoxia -Decrease IVF to KVO Hypokalemia - replace Hypotension - resolved Atelectasis -Start IS and monitor Dementia/debility Consult PT/OT. Consult hospice care. Pt is already a DNR. She is very fragile and week. I don't expect her to do well over the next several weeks. Pt would be a good hospice candidate. Will make her cardiac step down status. ANDRE CENTENO DO Jan 26, 2018 08:54
[2018-01-26] MEDS ORDERED: SODIUM PHOSPHATE INJ 30 MM in NS (IVPB) 250 ML IV NR (09:15)
[2018-01-26] MEDS: risperiDONE 0.25 MG (RisperDAL) TAB PO SCH (09:52)
[2018-01-26] MEDS: DILTIAZEM 180 MG (CARDIZEM CD) CAP PO SCH (09:52)
[2018-01-26] MEDS: DOCUSATE SODIUM 100 MG (COLACE) CAP PO SCH ×2 (09:52→20:59)
[2018-01-26] MEDS: MEMANTINE 10 MG (NAMENDA) TABLET PO SCH ×2 (09:52→20:59)
[2018-01-26] MEDS: ENOXAPARIN 100 MG/1 ML (LOVENOX) SYR SC SCH (09:52)
[2018-01-26] MEDS: PARoxetine 10 MG (PAXIL) TAB PO SCH (09:52)
[2018-01-26] MEDS: DIVALPROEX EXT RELEASE 500 MG (DEPAKOTE ER) TAB PO SCH (09:52)
[2018-01-26] MEDS: PANTOPRAZOLE 40 MG (PROTONIX) TAB PO SCH (09:52)
--- NOTE | 2018-01-26 10:56 | Progress Note-Hospitalist ---
Progress Note Progress Notes/Assess & Plan Date Seen 01/26/18 Time Seen by Provider: 10:47 Assessment & Plan The patient appears more alert today. We are transferring to the floor. The transition has been made in order to reestablish her Coumadin for chronic atrial fibrillation. At this time she appears to be in a sinus rhythm. She has no specific complaints. MARIANELA Redman informs me that they believe she would not be able to participate for the 3 hours to qualify for the rehabilitation facility. Accordingly she will receive physical and occupational therapy on fourth floor until we are ready to discharge back to [place] to continue physical therapy at the facility. Physical exam: She is pleasant but confused. Lungs are clear to auscultation. CV is regular. Impression: Femur fracture post placement of intramedullary tanner. 2.atrial fibrillation. 3.dementia. Plan: Transfer to floor as described above VIVIANA ESTEVES MD Jan 26, 2018 10:56
[2018-01-26 11:00] VITALS: BP 139/62
[2018-01-26] MEDS ORDERED: ACETAMINOPHEN 500 MG TAB (TYLENOL) PO NR (12:00)
--- NOTE | 2018-01-26 14:13 | Occupational Ther Daily Note ---
OT Current Status-Daily Note Subjective Pt seen in room, up in bed, agreeable to OT. Pt reported that she had just had sweet potatoes and pineapple and ate it all. No pain mentioned. Appearance Alert, cooperative Mental Status/Objective Functional [place] Measure 0=Not Assessed/NA 4=Minimal Assistance 1=Total Assistance 5=Supervision or Setup 2=Maximal Assistance 6=Modified [place] 3=Moderate Assistance 7=Complete [place] Other Treatment Pt was able to do 10 reps AROM for shoulders, elbows, forearms and hands only by visually following OT do them. She was not able to initiate one repetition by herself or track repetitions. Followup with nursing re meal - she had sweet potatoes and peaches and was not able to feed herself, although she ate about 50 %. She might be able to feed herself with help scooping the food. Pt able to get a drink when offered to her and with help holding mug. Pt left up in bed, all needs met. Education OT Patient Education: Purpose of tx/functional activities Teaching Recipient: Patient Teaching Methods: Demonstration Response to Teaching: Return Demonstration (direct cues) OT Short Term Goals Short Term Goals 1=Demonstrate adherence to instructed precautions during ADL tasks. 2=Patient will verbalize/demonstrate understanding of assistive devices/ modifications for ADL. 3=Patient will improve strength/tolerance for activity to enable patient to perform ADL's. OT Chcf Goals [employer] Weaver Goals Time Frame: Feb 01, 2018 Eating (FIM): 5 Grooming(FIM): 5 Bathing(FIM): 4 Upper Body Dressing(FIM): 4 Lower Body Dressing(FIM): 3 Toileting(FIM): 1 Toilet/Commode Transfer(FIM): 1 Additional Goals: 2-Verbalize Understanding, 3-ImproveStrength/Lay 1=Demonstrate adherence to instructed precautions during ADL tasks. 2=Patient will verbalize/demonstrate understanding of assistive devices/ modifications for ADL. 3=Patient will improve strength/tolerance for activity to enable patient to perform ADL's. OT Education/Plan Problem List/Assessment Pt would benefit from skilled OT to increase her independence in basic self care to allow her to return to prior functional status Discharge Recommendations Plan/Recommendations: Continue POC Treatment Plan/Plan of Care Patient would benefit from OT for education, treatment and training to promote independence in ADL's, mobility, safety and/or upper extremity function for ADL' s. Plan of Care: ADL Retraining, Functional Mobility, UE Funct Exercise/Act, UE Neuromus Re-Ed/Coord Treatment Duration: Feb 01, 2018 Frequency: 5 times per week Estimated Hrs Per Day: .5 hour per day Agreement: Yes Rehab Potential: Guarded Time/GCodes Start Time: 13:55 Stop Time: 14:06 Total Time Billed (hr/min): 11 Billed Treatment Time visit, 11 minutes exercise CHACHA GROSS OT Jan 26, 2018 14:13
[2018-01-26 16:15] VITALS: BP 112/57
[2018-01-26] MEDS: warFARin 3 MG (COUMADIN) TAB PO SCH (17:25)
[2018-01-26 20:30] VITALS: BP 140/65
[2018-01-26] MEDS: HYDROcodone/APAP 5 MG/325 MG (LORTAB) TAB PO PRN (21:19)
[2018-01-27 00:07] VITALS: BP 143/70
[2018-01-27 04:10] VITALS: BP 145/65
[2018-01-27] MEDS: HYDROcodone/APAP 5 MG/325 MG (LORTAB) TAB PO PRN (06:01)
[2018-01-27] MEDS: PANTOPRAZOLE 40 MG (PROTONIX) TAB PO SCH (06:01)
[2018-01-27 08:00] VITALS: BP 141/66
[2018-01-27] MEDS: MEMANTINE 10 MG (NAMENDA) TABLET PO SCH (09:03)
[2018-01-27] MEDS: DILTIAZEM 180 MG (CARDIZEM CD) CAP PO SCH (09:03)
[2018-01-27] MEDS: DOCUSATE SODIUM 100 MG (COLACE) CAP PO SCH (09:03)
[2018-01-27] MEDS: DIVALPROEX EXT RELEASE 500 MG (DEPAKOTE ER) TAB PO SCH (09:03)
[2018-01-27] MEDS: PARoxetine 10 MG (PAXIL) TAB PO SCH (09:03)
--- NOTE | 2018-01-27 09:51 | Cardiology Progress Note ---
Subjective Date Seen by Provider: Jan 27, 2018 Time Seen by Provider: 09:50 Subjective/Events-last exam Patient is laying down in bed, confused. No new complaint Review of Systems General: Malaise, Other (unable to provide review of systems) HEENT: No Head Aches, No Visual Changes, No Eye Pain, No Ear Pain, No Dysphasia , No Sinus Congestion, No Post Nasal Drip, No Sore Throat, No Other Pulmonary: No Dyspnea, No Cough, No Pleuritic Chest Pain, No Other Cardiovascular: No: Chest Pain, Palpitations, Orthopnea, Paroxysmal Noc. Dyspnea, Edema, Lt Headedness, Other Objective-Cardiology Exam Last Set of Vital Signs Vital Signs 01/25/18 01/27/18 01/27/18 20:37 04:10 07:00 Temp 99.4 Pulse 97 Resp 18 B/P (MAP) 145/65 (91) Pulse Ox 93 O2 Delivery Nasal Cannula O2 Flow Rate 1.00 FiO2 24 Capillary Refill : Less Than 3 Seconds I&O Intake and Output 01/27/18 00:00 Intake Total 1050 ml Output Total 1600 ml Balance -550 ml Intake Oral 550 ml IV Total 500 ml Output Urine Total 1600 ml # Bowel Movements 1 General: Alert, Cooperative, Mild Distress HEENT: Atraumatic, PERRLA Neck: Supple Lungs: Clear to Auscultation, Normal Air Movement Heart: Regular Rate, Normal S1, Normal S2 Abdomen: Normal Bowel Sounds Extremities: No Clubbing, No Cyanosis Skin: No Rashes Psych/Mental Status: Other (Confused) A/P-Cardiology Admission Diagnosis Hip fracture Paroxysmal atrial fibrillation Hypertension Hyperlipidemia Assessment/Plan Status post closed reduction with placement of femoral nail to the left femur, recovering well. 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 Monitor INR. Recommended INR level 2-3 Hypertension, controlled, monitor blood pressure while on current medication Hyperlipidemia, continue on statin Anemia, status post transfusion, continue to monitor H&H Confusion, dementia. Followed and managed by primary care physician Status post overdose with pain medication/respiratory arrest reversed with Narcan, followed by primary care team Clinical Quality Measures DVT/VTE Risk/Contraindication: Risk Factor Score Per Nursin RFS Level Per Nursing on Admit: 4+=Very High DARRELL COOPER MD Jan 27, 2018 09:50
--- NOTE | 2018-01-27 10:09 | Pulmonary Progress Note ---
Subjective Time Seen by Provider: 09:59 Subjective/Events-last exam no complications noted. Sepsis Event Evaluation Height, Weight, BMI Height: 5'5.00" Weight: 217lbs. 6.0oz. 98.648293sc; 32.0 BMI Method: Exam Exam Vital Signs Date Time Temp Pulse Resp B/P (MAP) Pulse Ox O2 Delivery O2 Flow Rate FiO2 01/27/18 07:00 97 01/27/18 04:10 99.4 98 18 145/65 (91) 93 Nasal Cannula 1.00 01/27/18 01:00 93 01/27/18 00:07 97.8 97 17 143/70 (94) 95 Nasal Cannula 1.00 01/26/18 20:50 98 Nasal Cannula 1.00 01/26/18 20:30 99.2 96 24 140/65 (90) 97 Nasal Cannula 1.00 01/26/18 19:00 93 01/26/18 16:15 96.9 86 20 112/57 (75) 97 Nasal Cannula 1.00 01/26/18 13:00 85 01/26/18 12:00 98 Nasal Cannula 1.00 01/26/18 11:00 100.4 86 16 139/62 (87) 97 Nasal Cannula 1.00 I & O 01/27/18 07:00 Intake Total 1150 ml Output Total 1800 ml Balance -650 ml Height & Weight Height: 5'5.00" Weight: 217lbs. 6.0oz. 98.194371zj; 32.0 BMI Method: General Appearance: Anxious HEENT: Normal ENT Inspection Neck: Non Tender, Supple Respiratory: No Accessory Muscle Use, No Respiratory Distress Cardiovascular: Regular Rate, Rhythm, Normal Peripheral Pulses Peripheral Pulses: 2+ Dorsalis Pedis (R), 2+ Left Dors-Pedis (L) Gastrointestinal: non tender, soft Extremity: Other Neurologic/Psychiatric: Alert, No Motor/Sensory Deficits, hose turner II-XII Norm as Tested Skin: Normal Color, Warm/Dry Results Lab Laboratory Tests 01/25/18 16:01 01/25/18 18:31 01/26/18 04:05 01/26/18 05:37 Assessment/Plan Assessment/Plan S/P respiratory arrest L Femur fracture s/p repair -pain control Anemia s/p 2 units PRBC -Check occult stool -monitor diastolic CHF with pulmonary edema and hypoxia -IVF KVO Atelectasis -Start IS and monitor Dementia/debility ANDRE CENTENO DO Jan 27, 2018 10:09
--- NOTE | 2018-01-27 10:15 | Physical Therapy Daily Note ---
PT Daily Note-Current Subjective Drowsy. Agreeable. Transfers Functional [place] Measure 0=Not Assessed/NA 4=Minimal Assistance 1=Total Assistance 5=Supervision or Setup 2=Maximal Assistance 6=Modified [place] 3=Moderate Assistance 7=Complete IndependenceIRFPAI Quality Coding Scale 6 Independent with activity with or without an assistive device 5 Patient requires set up or clean up by helper. Patient completes activity by themselves 4 Supervision or touching assist (CGA). [place] provide cues , steadying assist 3 The helper provides less than half the effort to complete the activity 2 The helper provides more than half the effort to complete the activity 1 Dependent. The helper does all the effort to complete an activity 7 Patient refused to complete or attempt activity 9 The patient did not perform the activity before the current illness or injury 88 Not attempted due to Medical conditions or safety concerns Weight Bearing Right Lower Extremity: Right Full Weight Bearing Left Lower Extremity: Left Non Weight Bearing Treatments Supine to sit EOB with dep assist of 2. Pt sat EOB x 10 minutes with dep assist of 2. While sitting, pt performed AP Bilaterally; she was able to complete a LAQ on the right and initiate a LAQ on the left. While sitting, working on breathing deep and promoting LE circulation. Returned to bed with dep assist and dep for rolling and scooting. Pt positioned slightly turned to the right, heels elevated and SCD in place on the right. Assessment Limited active participation with treatment, unsure of her awareness. She does follow cues 75% of the time. She does appear to have pain with movement of the left LE. She tolerated sitting EOB fairly well but is dependent and is unsafe to attempt to transfer to the chair. PT Banding Machine Operator Goals Skilled Nursing Goals PT Banding Machine Operator Goals Time Frame: Feb 12, 2018 Transfers (B,C,W/C) (FIM): 2 PT Plan Problem List Problem List: Activity Tolerance, Functional Strength, Safety, Transfer, Bed Mobility Treatment/Plan Treatment Plan: Continue Plan of Care Treatment Plan: Bed Mobility, Education, Functional Activity Lay, Functional Strength, Safety, Therapeutic Exercise, Transfers Treatment Duration: Feb 12, 2018 Frequency: 6 times per week Estimated Hrs Per Day: .5 hour per day Patient and/or Family Agrees t: Yes Safety Risks/Education Patient Education: Safety Issues Teaching Recipient: Patient Teaching Methods: Discussion Response to Teaching: Reinforcement Needed Time/GCodes Time In: 942 Time Out: 1010 Total Billed Treatment Time: 28 Total Billed Treatment visit FA 30 YO SUAREZ PT Jan 27, 2018 10:15
[2018-01-27 10:35] LABS: HEMOGLOBIN 8.4 G/DL (11.5-16.0); MEAN PLATELET VOLUME 9.8 FL (7.4-10.4); RED BLOOD COUNT 2.76 10^6/uL (4.35-5.85); RED CELL DISTRIBUTION WIDTH 15.1 % (10.0-14.5); WHITE BLOOD COUNT 8.2 10^3/uL (4.3-11.0)
[2018-01-27 10:45] LABS: INR 1.4 (0.8-1.4); PROTHROMBIN TIME PATIENT 17.1 SEC (12.2-14.7)
[2018-01-27 10:50] LABS: ALANINE AMINOTRANSFERASE 9 U/L (0-55); ALBUMIN 2.7 GM/DL (3.2-4.5); ALKALINE PHOSPHATASE 55 U/L (40-136); BUN/CREATININE RATIO 13; CALCIUM 8.3 MG/DL (8.5-10.1); CARBON DIOXIDE 23 MMOL/L (21-32); CHLORIDE 110 MMOL/L (98-107); CREATININE SERUM 0.52 MG/DL (0.60-1.30); GFR ESTIMATED > 60; GLUCOSE 136 MG/DL (70-105); POTASSIUM 3.4 MMOL/L (3.6-5.0); SODIUM 141 MMOL/L (135-145); TOTAL PROTEIN 4.5 GM/DL (6.4-8.2)
[2018-01-27] MEDS ORDERED: ACHD5005 PO (10:57)
--- NOTE | 2018-01-27 10:58 | Discharge Inst-Skilled Nursing ---
Discharge Inst-Skilled NF Patient Instructions Patient Problems: Left femur fracture Dementia Hx PE Coumadin treatment Goal: Return to independent ADL's Consult/Follow Up/Orders Follow Up Appt.: Dr Ruiz in 1 week Skilled NF Admit to: Certification (SNF) I certify that SNF services are required to be given on an inpatient basis because of the above named patient's need for fci care on a continuing basis for the conditions(s) for which he/she was receiving inpatient hospital services prior to his/her transfer to the SNF. Nursing Home Facility Order: Nursing Services, Microscopist-Evaluate & Treat, Physical Therapy-Evaluate & Treat, Speech Language-Evaluate & Treat Discharge Diet: No Restrictions Daily Activity as Tolerated: Yes New & Resume Previous Orders Cheyenne Vilchis Jan 27, 2018 10:57 Pneu Vac Indicated: Yes CHEYENNE VILCHIS DO Jan 27, 2018 10:58
--- NOTE | 2018-01-27 10:59 | Discharge Summary-Hospitalist ---
Diagnosis/Chief Complaint Date of Admission Jan 21, 2018 at 23:25 Date of Discharge Discharge Date: Jan 27, 2018 Admission Diagnosis left hip fracture Discharge Diagnosis (1) Respiratory arrest Status: Resolved Assessment & Plan: Given Narcan with good response Bagged for short period of time Will decrease fentanyl dose and attempt to use only oral pain medications Now on nasal cannula- alert and oriented (2) Femur fracture, left Status: Resolved Assessment & Plan: Ortho consulted, appreciate recs INR 1.6 Resume Warfarin when surgery okays Per NSQIP moderate risk at this time at 11.5% risk for serious event (3) Hypotension Status: Resolved Assessment & Plan: Resolved Continue to monitor and hold home antihypertensives (4) Dementia Status: Chronic Assessment & Plan: Oriented to person and minor details of situation (5) Leukocytosis Status: Acute Assessment & Plan: Stable (6) History of pulmonary embolism Status: Chronic Assessment & Plan: Notes report IVC filter in place Resume Warfarin when Surgery allows Discharge Summary Discharge Physical Exam Allergies: Coded Allergies: No Allergy Information Available (Unverified , 01/21/18) Vitals & I&Os Vital Signs Date Time Temp Pulse Resp B/P (MAP) Pulse Ox O2 Delivery O2 Flow Rate FiO2 01/27/18 11:11 92 1.00 01/27/18 11:11 Room Air 01/27/18 08:00 99.9 97 18 141/66 (91) 01/25/18 20:37 24 General Appearance: Alert Respiratory: Clear to Auscultation, Normal Air Movement Cardiovascular: Regular Rate Hospital Course Hospital course: patient was admitted directly from [facility] after she fell at [facility] and sustained a femur fracture. Pt had h/o PE maintained on Coumadin and her INR was 3.6 so she was given a small dose of Vit K on admit PO to facilitate repair planned by Ortho surgery. She underwent an uncomplicated surgery and did have a respiratory arrest following Fentanyl so she was given Narcan after bagging briefly which resolved. Lovenox was maintained and due to anemia that med was DC and Coumadin was restarted. Pt did require 4 units of blood after surgery. Overall her prognosis is very poor considering her frail and debilitated status prior to femur fracture but she was found to have potential for recovery so she was DC to [facility] on Dr Ruiz service and he was notified by voicemail message at his office by this provider. Labs (last 24 hrs) Laboratory Tests 01/26/18 21:15: Stool Occult Blood Immunoassay NEGATIVE 01/27/18 10:21: White Blood Count 8.2, Red Blood Count 2.76L, Hemoglobin 8.4L, Hematocrit 26L, Mean Corpuscular Volume 94, Mean Corpuscular Hemoglobin 30, Mean Corpuscular Hemoglobin Concent 32, Red Cell Distribution Width 15.1H, Platelet Count 181, Mean Platelet Volume 9.8, Prothrombin Time 17.1H, INR Comment 1.4, Sodium Level 141, Potassium Level 3.4L, Chloride Level 110H, Carbon Dioxide Level 23, Anion Gap 8, Blood Urea Nitrogen 7, Creatinine 0.52L, Estimat Glomerular Filtration Rate > 60, BUN/Creatinine Ratio 13, Glucose Level 136H, Calcium Level 8.3L, Corrected Calcium 9.3, Total Bilirubin 1.0, Aspartate Amino Transf (AST/SGOT) 11 , Alanine Aminotransferase (ALT/SGPT) 9, Alkaline Phosphatase 55, Total Protein 4.5L, Albumin 2.7L Microbiology 01/22/18 Blood Culture - Final, Complete No growth 01/23/18 MRSA Screen - Final, Complete MRSA not isolated Patient resulted labs reviewed. Pending Labs Imaging: Reviewed Imaging Report Discussion & Recommendations Discharge Planning: <30 minutes discharge planning Discharge Home Medications: Active Scripts Active Hydrocodone/Acetaminophen 5/325mg Tablet (Acetaminophen/Hydrocodone Bitart) 1 Tab Tab 1 Tab PO Q4H PRN Reported Tramadol HCl 50 Mg Tablet 50 Mg PO Q4H PRN Milk of Magnesia (Magnesium Hydroxide) 400 Mg/5 Ml Oral.susp 30 Ml PO DAILY PRN Nystop (Nystatin) 60 Gm Powder TP Q12H PRN Mucinex (Guaifenesin) 600 Mg Tab.er.12h 600 Mg PO Q12H PRN Simethicone 125 Mg Tab.chew 125 Mg PO QID PRN Tylenol (Acetaminophen) 325 Mg Tablet 650 Mg PO Q8H PRN Warfarin Sodium 3 Mg Tablet 3 Mg PO 1700 Divalproex Sodium ER (Divalproex Sodium) 500 Mg Tab.er.24h 500 Mg PO DAILY Potassium Chloride 10 Meq Tab.er.prt 10 Meq PO DAILY Ascorbic Acid 500 Mg Tablet 500 Mg PO DAILY Thera-M (Multivits, W-Fe,Other Min) 1 Each Tablet 1 Tab PO DAILY Tylenol Extra Strength (Acetaminophen) 500 Mg Tablet 500 Mg PO TID Namenda (Memantine HCl) 10 Mg Tablet 10 Mg PO BID Ferrous Sulfate 325 Mg Tablet 325 Mg PO BID Cranberry (Cranberry Extract) 300 Mg Tablet 300 Mg PO BID Trimethoprim 100 Mg Tablet 100 Mg PO HS Pravastatin Sodium 40 Mg Tablet 40 Mg PO HS Paxil (Paroxetine HCl) 10 Mg Tablet 10 Mg PO DAILY Diltiazem 24Hr ER (Diltiazem HCl) 180 Mg Cap.er.24h 180 Mg PO DAILY Instructions to patient/family Please see electronic discharge instructions given to patient. Clinical Quality Measures DVT/VTE Risk/Contraindication: Risk Factor Score Per Nursin RFS Level Per Nursing on Admit: 4+=Very High Problem Qualifiers (1) Femur fracture, left: Encounter type: initial encounter Femur location: shaft Fracture type: closed Fracture morphology: comminuted Fracture alignment: displaced Qualified Codes: S72.352A - Displaced comminuted fracture of shaft of left femur, initial encounter for closed fracture (2) Hypotension: Hypotension type: unspecified hypotension type Qualified Codes: I95.9 - Hypotension, unspecified (3) Dementia: Dementia type: unspecified type FERMIN YING DO Jan 27, 2018 10:59
--- NOTE | 2018-01-30 18:04 | OPERATIVE REPORT ---
DATE OF SERVICE: 01/23/2018 PREPROCEDURE DIAGNOSIS: Displaced, comminuted extraarticular fracture, left distal femur. POSTPROCEDURE DIAGNOSIS: Displaced, comminuted extraarticular fracture, left distal femur. PROCEDURE: Closed reduction followed by placement of a retrograde femoral nail, left femur. ATTENDING SURGEON: Dr. Temi Alegre. MEDIATOR: Zain Dickerson PA-C; Mr. Dickerson's assistance was required secondary to the complexity of the case, the patient's large body habitus, in order to hold necessary retractors protecting vital neurovascular structures and increase the efficiency and efficacy of the case; this case would not have been possible without the presence of an records assistant. ANESTHESIA: General endotracheal. ESTIMATED BLOOD LOSS: 100 mL. COMPLICATIONS: None. SPECIMENS: None. DRAINS: None. IMPLANTS: The Synthes retrograde femoral nail, size 13 mm in diameter x 380 mm in length with an 85 mm distal spiral blade. BRIEF HISTORY AND INDICATIONS: The patient is an 82-year-old female with history of advanced dementia that sustained a mechanical fall from a standing height, landing on to her left knee while attempting to remove herself from the toilet. She subsequently had severe left knee pain and an inability to bear weight or ambulate on her left lower extremity. She had originally presented to the [facility] for evaluation. Upon presentation, plain radiographs of the patient's left femur demonstrated a comminuted fracture of the left distal femur. The patient was transferred to [facility] for definitive orthopedic management. Upon presentation, the patient's left lower extremity did demonstrate mild to moderate gross valgus deformity, she had mild ecchymosis around the knee, the skin was intact, there were no open wounds. All of her compartments were soft and compressible. Her motor and sensory function was grossly intact and her left foot was well perfused. I did review the imaging studies of the left femur, which did demonstrate a comminuted, extraarticular fracture of the left distal femur. I explained the nature of this injury to the patient's family including the natural history, prognosis as well as indications for surgery. Surgical plan was for closed manipulation followed by placement of a retrograde nail versus possible open reduction and internal fixation. I explained the treatment plan to the patient's family in detail. All of their questions were answered to their satisfaction. They gave informed written consent to proceed as planned after all of their questions were answered to their satisfaction. PROCEDURE NOTE: After correctly identifying the patient as the patient in the preoperative holding area and after her left lower extremity was appropriately marked, she was transferred to the operating room. Once in the operating room, she had successful induction of general endotracheal anesthesia and then she was transferred to the radiolucent OR table and placed in the supine position. All bony prominences were meticulously padded. The left lower extremity was then prepped and draped in the routine sterile fashion. Prior to beginning the case, we completed an operating room time out with all parties involved in the case and agreement and verified appropriate infusion of prophylactic antibiotics. Using a 10 blade scalpel, I made an incision over the anterior aspect of the left knee centered over the patellar tendon. After incising through the skin and subcutaneous tissue, 15 blade scalpel was then used to make an incision in the midline of the patellar tendon splitting the fibers. This gave me access to the knee joint. Using fluoroscopic guidance, the guide pin from the Synthes retrograde femoral nail set was introduced into the distal femur and advanced proximally to the appropriate level. The appropriate starting point was confirmed with AP and lateral C-arm fluoroscopic images prior to introducing the guide pin into the distal femur. Once the guide pin was in the appropriate position, closed reduction maneuver was completed to acceptably align the fracture and then the opening reamer was used over the guide pin to prepare the remotely piloted vehicle controller hole in the distal femur for the femoral nail. The guidepin was removed, the ball tipped guidewire was then introduced into the femur and advanced proximally to just proximal to the lesser trochanter. We then measured for the length of the nail. The nail was then introduced over the ball tipped guidewire and inserted into the appropriate position of the femur under fluoroscopic guidance. The ball tipped guidewire was then removed. Prior to completing proximal and distal locking of the nail, we confirmed that the nail was in an acceptable position and that the fracture was acceptably aligned. We then used the external aiming arm to place the distal spiral blade as well as locking bolts. Once this was completed, the nail was then locked proximally with one anterior to posterior locking bolt using fluoroscopic guidance in the perfect tanana technique. This completed fixation of the fracture. Prior to closing, we used C-arm fluoroscopy to confirm that the fracture was in an acceptable position in both the AP and lateral planes. The wounds were then irrigated with copious amounts of sterile saline followed by standard closure. We used 0 Vicryl to close the patellar tendon as well as the deep fascia, 2-0 Vicryl for the subcutaneous tissue and pedro luis for the skin. The patient then had a sterile dressing applied and then was awakened and extubated in the operating room without complications. She tolerated the procedure quite well. All counts were correct at the end of the case. PLAN AND PROGNOSIS: The patient's weightbearing will need to be protected secondary to the nature of her injury. She will be nonweightbearing on her left lower extremity. She will be mobilized as able with physical therapy and occupational therapy. Mobilization will include getting her out of bed as necessary as well as for range of motion exercises of her left knee. She will be given the appropriate VTE prophylaxis as well as prophylactic antibiotics. I do believe that given the patient's advanced age as well as history of advanced dementia that her prognosis is quite guarded. I explained the postoperative plan as well as prognosis to the patient's family postoperatively. All of their questions were answered. Job ID: [id number] DocumentID: [id number] Dictated Date: 01/30/2018 11:02:52 [place] Clerk Date: 01/30/2018 18:03:16 Dictated By: TEMI ALEGRE
== END 2018-01-27 13:29 | DRG 480 ==
LOC: ICU 23:25 → 4TH 01-26 10:50
PROVIDERS: ADMIT Internal Medicine; ATTEND Internal Medicine
PROC: 0QSC04Z Reposition Left Lower Femur with Internal Fixation Device, Open Approach (ICD-10-PCS; principal; 2018-01-23 10:46)
DX: S72.352A Displaced comminuted fracture of shaft of left femur, initial encounter for closed fracture (principal); I95.9 Hypotension, unspecified; T40.4X1A Poisoning by other synthetic narcotics, accidental (unintentional), initial encounter; R09.2 Respiratory arrest; I50.30 Unspecified diastolic (congestive) heart failure; K21.9 Gastro-esophageal reflux disease without esophagitis; K57.90 Diverticulosis of intestine, part unspecified, without perforation or abscess without bleeding; J98.11 Atelectasis; Z66 Do not resuscitate; K44.9 Diaphragmatic hernia without obstruction or gangrene; F32.9 Major depressive disorder, single episode, unspecified; D64.9 Anemia, unspecified; F03.90 Unspecified dementia, unspecified severity, without behavioral disturbance, psychotic disturbance, mood disturbance, and anxiety; I10 Essential (primary) hypertension; E78.5 Hyperlipidemia, unspecified; I48.0 Paroxysmal atrial fibrillation; Z86.718 Personal history of other venous thrombosis and embolism; Z86.711 Personal history of pulmonary embolism; Z79.01 Long term (current) use of anticoagulants; W19.XXXA Unspecified fall, initial encounter; Y92.121 Bathroom in nursing home as the place of occurrence of the external cause
CPT/HCPCS: 36415; 71045; 80048; 80053; 82274; 83605; 83735; 84100; 85014; 85018; 85025; 85027; 85610; 85730; 86850; 86900; 86901; 86920; 87040; 87081; 93005; 93306; 94664; 94760; 94761